=== PATIENT | male | born 1970 | race Caucasian/White ===

== ENCOUNTER → 2017-02-25 | Outpatient (CLI) | payer OTHER ==
--- NOTE | 2017-02-25 14:24 | MR ---
EXAMINATION TYPE: MR knee LT wo con DATE OF EXAM: 02/25/2017 COMPARISON: Prior left knee MRI 12/16/2013 HISTORY: Left knee pain TECHNIQUE: Multiplanar, multisequence imaging of the left knee is performed without IV contrast. FINDINGS: MEDIAL MENISCUS: There is a stable appearance. Some minimal increased signal present in the posterior horn of the medial meniscus does not extend to the articular surface. LATERAL MENISCUS: Anterior and posterior horns are intact without tear. CRUCIATE LIGAMENTS: There is some fluid signal coursing along the anterior cruciate ligament (inserti on similar to previous exam, findings may be due to degenerative signal, no samantha tear of the anterio r or posterior cruciate ligaments. COLLATERAL LIGAMENTS: Intact EXTENSOR MECHANISM: Visualized quadriceps and patellar tendons are intact. EFFUSION: Minimal joint fluid is present as on prior exam. POPLITEAL CYST: Small semimembranosus gastrocnemius cyst is again seen and is stable. Measures appro ximately 3.1 x 0.8 x 0.8 cm. TRICOMPARTMENT SPACES: Maintained CARTILAGE: Intact BONE MARROW SIGNAL: No focal abnormal marrow signal is appreciated. OTHER: There was a small area of fluid anterior to the inferior patella within the subcutaneous soft tissues noted on prior exam, signal characteristics have changed, this likely represents residuum fr om prior hematoma within the subcutaneous fat anterior to the inferior margin of the patella. Low sig nal is present on T1 and T2-weighted sequences, crescentic focus measures only approximately 2 cm in cephalocaudal dimension by approximately 3 mm in anterior to posterior dimension by approximately 2.4 cm in greatest transverse dimension. Correlate for any palpable abnormality. IMPRESSION: There is evidence of prior hematoma due to contusion on prior exam. No ligamentous disruption is evid ent. Additional findings above.
== END | disposition home or self-care (01) ==
LOC: RADMRIMAIN 09:13
PROVIDERS: ATTEND Orthopaedic Surgery
DX: M79.81 Nontraumatic hematoma of soft tissue (principal)

== ENCOUNTER → 2017-03-17 | Outpatient (CLI) | payer OTHER ==
--- NOTE | 2017-03-17 15:58 | US ---
"EXAMINATION TYPE: US carotid duplex BILAT DATE OF EXAM: 03/17/2017 COMPARISON: NONE CLINICAL HISTORY: I65.21 Carotid Stenosis, I47.1 Atrial Fibrillation. Right eye amaurosis fugax x 2; Hollenhorst Plaque right eye per patient; EXAM MEASUREMENTS: RIGHT: Peak Systolic Velocity (PSV) cm/sec ----- Right CCA: 65.2 ----- Right ICA: 371.0 bulb ----- Right ECA: 122.0 ICA/CCA ratio: 5.7 RIGHT: End Diastole cm/sec ----- Right CCA: 17.2 ----- Right ICA: 220.8 ----- Right ECA: 29.8 LEFT: Peak Systolic Velocity (PSV) cm/sec ----- Left CCA: 98.0 ----- Left ICA: 114.1 ----- Left ECA: 123.8 ICA/CCA ratio: 1.2 LEFT: End Diastole cm/sec ----- Left CCA: 43.0 ----- Left ICA: 49.5 ----- Left ECA: 13.6 VERTEBRALS (direction of flow): Right Vertebral: Antegrade Left Vertebral: Antegrade Rhythm: Normal STAT Read by radiologist was requested by US technologist. Referring clinician notified by telephone IMPRESSION: 1. Extensive plaque bilaterally findings suggestive of a severe greater than 70% stenosis involving t he proximal right ICA. A Red message has been communicated to Nico Estevez DO via the [email or web address] | Critical Result sys tem on 03/17/2017 3:54 PM, Message ID [id number]."
--- NOTE | 2017-03-18 10:11 | ECHOF ---
Referral Reason:I65.21 Carotid Stenosis, I47.1 Atrial Fibillation MEASUREMENTS -------- HEIGHT: 177.8 cm WEIGHT: 68.9 kg BP: RVIDd: 2.5 cm (< 3.3) IVSd: 0.9 cm (0.6 - 1.1) LVIDd: 4.1 cm (3.9 - 5.3) LVPWd: 1.1 cm (0.6 - 1.1) IVSs: 1.2 cm LVIDs: 2.9 cm LVPWs: 1.5 cm LAESV Index (A-L): 23.88 ml/m Ao Diam: 3.3 cm (2.0 - 3.7) AV Cusp: 1.7 cm (1.5 - 2.6) LA Diam: 2.8 cm (2.7 - 3.8) MV EXCURSION: 19.458 mm (> 18.000) MV EF SLOPE: 136 mm/s (70 - 150) EPSS: 0.8 cm MV E Angel: 0.87 m/s MV DecT: 201 ms MV A Angel: 0.86 m/s MV E/A Ratio: 1.01 RAP: 5.00 mmHg RVSP: 23.93 mmHg FINDINGS -------- Resting bradycardia (HR<60bpm). This was a technically good study. The left ventricular size is normal. Left ventricular wall thickness is normal. Overall left ventricular systolic function is normal with, an EF between 55 - 60 %. The right ventricle is normal in size and function. Normal LA size by volume 22+/-6 ml/m2. The right atrium is normal in size. Aortic valve is trileaflet and is mildly thickened. Trace amount of aortic regurgitation. There is no evidence of aortic stenosis. The mitral valve leaflets are mildly thickened. There is trace mitral regurgitation. Trace tricuspid regurgitation present. Right ventricular systolic pressure is normal at < 35 mmHg. There is no evidence of pulmonary hypertension. The pulmonic valve is normal. The aortic root size is normal. Normal inferior vena cava with normal inspiratory collapse consistent with estimated right atrial pressure of 5 mmHg. The pericardium is normal. There is no pericardial effusion. CONCLUSIONS -------- 1. Resting bradycardia (HR<60bpm). 2. Trace tricuspid regurgitation present. 3. Right ventricular systolic pressure is normal at < 35 mmHg. 4. There is no evidence of pulmonary hypertension. 5. The aortic root size is normal. 6. There is no pericardial effusion. 7. This was a technically good study. 8. The left ventricular size is normal. 9. Overall left ventricular systolic function is normal with, an EF between 55 - 60 %. 10. Normal LA size by volume 22+/-6 ml/m2. 11. Aortic valve is trileaflet and is mildly thickened. 12. Trace amount of aortic regurgitation. 13. The mitral valve leaflets are mildly thickened. 14. There is trace mitral regurgitation. ORTHOPEDIC DESIGNER: Michael Bean RDCS
== END | disposition home or self-care (01) ==
LOC: RADUSMAIN 15:05
PROVIDERS: ATTEND Ophthalmology
DX: I65.21 Occlusion and stenosis of right carotid artery (principal); I08.8 Other rheumatic multiple valve diseases; R00.1 Bradycardia, unspecified; I47.1 Supraventricular tachycardia
CPT/HCPCS: 93306; 93880

== ENCOUNTER → 2017-05-03 | Outpatient (CLI) | payer OTHER ==
[2017-05-03 11:44] LABS: Basophils % (A) 0 %; CH 30.5; CHCM 32.5; Eosinophils % (A) 0 %; HCT 47.9 % (39.0-53.0); HDW 2.41; HGB 15.5 gm/dL (13.0-17.5); Luc # (Auto) 0.06; Luc % (Auto) 1; Lymphocytes # (A) 1.6 k/uL (1.0-4.8); Lymphocytes % (A) 12 %; MCH 30.5 pg (25.0-35.0); MCHC 32.3 g/dL (31.0-37.0); MCV 94.3 fL (80.0-100.0); Mean Platelet Volume 6.9; Monocytes # (A) 0.5 k/uL (0-1.0); Monocytes % (A) 4 %; Neutrophils # (A) 10.7 k/uL (1.3-7.7); Neutrophils % (A) 83 %; RBC 5.08 m/uL (4.30-5.90); RDW 14.6 % (11.5-15.5); WBC 12.9 k/uL (3.8-10.6); WBC (Perox) 13.13
[2017-05-03 11:51] LABS: Appearance,Urine Clear (Clear); Bilirubin,Urine Negative (Negative); Glucose,Urine (UA) Negative (Negative); Ketones,Urine Negative (Negative); Leukocyte Esterase,Urine Negative (Negative); Mucus,Urine Rare /hpf; Nitrite,Urine Negative (Negative); Particle Count 1677; Protein,Urine Trace (Negative); RBC,Urine 6 /hpf (0-5); Specific Gravity,Urine 1.016 (1.001-1.035); UA Billing (MACRO vs. MICRO) MICRO
[2017-05-03 11:58] LABS: ALT 53 U/L (21-72); AST 24 U/L (17-59); Alkaline Phosphatase 98 U/L (38-126); Anion Gap 11 mmol/L; Blood Urea Nitrogen 11 mg/dL (9-20); Calcium 10.1 mg/dL (8.4-10.2); Carbon Dioxide 25 mmol/L (22-30); Chloride 103 mmol/L (98-107); Cholesterol 265 mg/dL (<200); Glucose 98 mg/dL (74-99); HDL Cholesterol 57 mg/dL (40-60); Non-African American GFR(MDRD) >60 (>60 ml/min/1.73 sqM); Sodium 139 mmol/L (137-145); Total Bilirubin 0.8 mg/dL (0.2-1.3); Total Protein 7.3 g/dL (6.3-8.2)
== END | disposition home or self-care (01) ==
LOC: LABWHC1 11:10
PROVIDERS: ATTEND Family Medicine
DX: Z00.00 Encounter for general adult medical examination without abnormal findings (principal)
CPT/HCPCS: 36415; 80053; 80061; 81001; 85025

== ENCOUNTER 2019-07-07 13:22 | Emergency (ER) | payer BC, OTHER ==
[2019-07-07 13:32] VITALS: TEMP 98.6
[2019-07-07] MEDS ORDERED: SODIUM CHLORIDE 0.9% 500 ML 500 ML IV STA (13:42)
[2019-07-07] MEDS ORDERED: predniSONE 20 MG TAB PO STA (13:45)
[2019-07-07] MEDS ORDERED: valACYclovir HCL 1,000 MG TABLET PO STA (13:45)
[2019-07-07 13:48] LABS: Glucose,Whole Blood 96 mg/dL (75-99)
--- NOTE | 2019-07-07 13:50 | ED ---
General Adult HPI - General Chief complaint: Neuro Symptoms/Deficit Stated complaint: left side facial numbness Time Seen by Provider: 07/07/19 13:33 Source: patient, RN notes reviewed, old records reviewed Mode of arrival: ambulatory Limitations: no limitations - History of Present Illness Initial comments: 48-year-old male presenting with left-sided facial droop. Patient's symptoms began as numbness at approximately midnight last night which is 13-1/2 hours prior to arrival. Patient states that progressively worsened and he has developed facial droop and difficulty closing his left eye. Denies any extremity symptoms. Denies headache. Denies visual changes. Denies chest pain or dyspnea. Denies abdominal pain nausea vomiting. Denies fever. No ear pain. Has previous history of hypertension, hypercholesterolemia. He is noncompliant with his medications. He has previous history of right carotid endarterectomy approximately 4 years ago. Current smoker. - Related Data Home Medications Medication Instructions Recorded Confirmed Rosuvastatin Calcium [Crestor] 20 mg PO HS 07/07/19 07/07/19 traMADol HCL [Ultram] 50 mg PO Q6HR PRN 07/07/19 07/07/19 Previous Rx's Medication Instructions Recorded Aspirin 325 mg PO DAILY #30 tab 07/07/19 Rosuvastatin [Crestor] 20 mg PO DAILY #30 tablet 07/07/19 predniSONE 50 mg PO DAILY #7 tab 07/07/19 valACYclovir HCL [Valtrex] 1,000 mg PO Q8HR #21 tab 07/07/19 Allergies Allergy/AdvReac Type Severity Reaction Status Date / Time No Known Allergies Allergy Verified 07/07/19 14:44 Review of Systems ROS Statement: Those systems with pertinent positive or pertinent negative responses have been documented in the HPI. ROS Other: All systems not noted in ROS Statement are negative. Past Medical History Past Medical History: GERD/Reflux, Hypertension Additional Past Medical History / Comment(s): hx hypertension-no rx currently, "Pancreas problem", diarrhea History of Any Multi-Drug Resistant Organisms: None Reported Past Surgical History: Appendectomy Past Anesthesia/Blood Transfusion Reactions: No Reported Reaction, Unable to Obtain Additional Past Anesthesia/Blood Transfusion Reaction / Comment(s): adopted-no family hx Past Psychological History: No Psychological Hx Reported Smoking Status: Current every day smoker Past Alcohol Use History: None Reported Past Drug Use History: Marijuana - Past Family History Father Family Medical History: Unable to Obtain General Exam Limitations: no limitations General appearance: alert, in no apparent distress Head exam: Present: atraumatic, normocephalic Eye exam: Present: normal appearance, PERRL ENT exam: Present: normal exam Neck exam: Present: normal inspection. Absent: tenderness, meningismus Respiratory exam: Present: normal lung sounds bilaterally. Absent: respiratory distress, wheezes Cardiovascular Exam: Present: regular rate, normal rhythm GI/Abdominal exam: Present: soft. Absent: distended, tenderness, guarding Extremities exam: Present: normal inspection, normal capillary refill. Absent: pedal edema, calf tenderness Back exam: Present: normal inspection Neurological exam: Present: alert, oriented X3, normal gait, motor sensory deficit (Left facial droop, left forehead weakness, difficulty closing the left eyelid.). Absent: CN II-XII intact Skin exam: Present: warm, dry, intact. Absent: cyanosis, diaphoretic Course Vital Signs 07/07/19 07/07/19 07/07/19 13:28 13:50 14:05 Temperature 98.6 F Pulse Rate 72 74 65 Respiratory 18 18 16 Rate Blood Pressure 166/99 155/110 145/97 O2 Sat by Pulse 98 100 99 Oximetry 07/07/19 07/07/19 07/07/19 14:06 14:24 15:25 Temperature Pulse Rate 71 67 68 Respiratory 18 16 18 Rate Blood Pressure 145/97 148/108 144/99 O2 Sat by Pulse 99 100 99 Oximetry 07/07/19 16:50 Temperature Pulse Rate 62 Respiratory 16 Rate Blood Pressure 133/92 O2 Sat by Pulse 98 Oximetry EKG Findings - EKG Comments: EKG Findings:: EKG: Normal sinus rhythm with short SC, rate of 66, SC interval 110, QRS duration 88, QTC 392, no ST segment elevation Medical Decision Making - Medical Decision Making 48-year-old male presenting with left-sided facial weakness. Patient has partial weakness of the left brow and left-sided facial droop with associated numbness. Stroke was activated given the patient's risk factors including tobacco use, hypertension, hypercholesterolemia, and previous right carotid endarterectomy. I discussed case with the stroke neurologist Dr. Delgado, who will review the CT and CT angiography. Not a TPA candidate, recommends aspirin and statin. CT is negative for intracranial hemorrhage or mass effect. CT angiography shows previous surgical intervention of the right carotid, otherwise unremarkable. Patient has a nonischemic normal sinus EKG. He has a normal CBC normal CMP, n egative troponin. He is given aspirin in the emergency department as well as Plavix. He is also given prednisone and Valtrex. My plan was to admit this patient for further stroke evaluation, MRI, echo, and neurology consultation. Patient declines. 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 I offered this patient wishes and discharge him, he is given referral to neurology. He's placed on aspirin, statin, as well as prednisone and Valtrex. - Lab Data Result diagrams: 07/07/19 13:50 07/07/19 13:50 Lab Results 07/07/19 07/07/19 07/07/19 Range/Units 13:47 13:50 13:50 WBC 8.0 (3.8-10.6) k/uL RBC 4.85 (4.30-5.90) m/uL Hgb 15.1 (13.0-17.5) gm/dL Hct 43.8 (39.0-53.0) % MCV 90.2 (80.0-100.0) fL MCH 31.1 (25.0-35.0) pg MCHC 34.5 (31.0-37.0) g/dL RDW 12.3 (11.5-15.5) % Plt Count 254 (150-450) k/uL Neutrophils % 49 % Lymphocytes % 39 % Monocytes % 5 % Eosinophils % 3 % Basophils % 1 % Neutrophils # 3.9 (1.3-7.7) k/uL Lymphocytes # 3.1 (1.0-4.8) k/uL Monocytes # 0.4 (0-1.0) k/uL Eosinophils # 0.3 (0-0.7) k/uL Basophils # 0.1 (0-0.2) k/uL PT (9.0-12.0) sec INR (<1.2) APTT (22.0-30.0) sec Sodium 138 (137-145) mmol/L Potassium 4.4 (3.5-5.1) mmol/L Chloride 105 (98-107) mmol/L Carbon Dioxide 25 (22-30) mmol/L Anion Gap 8 mmol/L BUN 7 L (9-20) mg/dL Creatinine 0.78 (0.66-1.25) mg/dL Est GFR (CKD-EPI)AfAm >90 (>60 ml/min/1.73 sqM) Est GFR (CKD-EPI)NonAf >90 (>60 ml/min/1.73 sqM) Glucose 93 (74-99) mg/dL POC Glucose (mg/dL) 96 (75-99) mg/dL POC Glu Sonar Technician ID Calcium 9.5 (8.4-10.2) mg/dL Total Bilirubin 0.6 (0.2-1.3) mg/dL AST 24 (17-59) U/L ALT 17 (4-49) U/L Alkaline Phosphatase 91 (38-126) U/L Troponin I (0.000-0.034) ng/mL Total Protein 7.5 (6.3-8.2) g/dL Albumin 4.3 (3.5-5.0) g/dL 07/07/19 07/07/19 Range/Units 13:50 13:50 WBC (3.8-10.6) k/uL RBC (4.30-5.90) m/uL Hgb (13.0-17.5) gm/dL Hct (39.0-53.0) % MCV (80.0-100.0) fL MCH (25.0-35.0) pg MCHC (31.0-37.0) g/dL RDW (11.5-15.5) % Plt Count (150-450) k/uL Neutrophils % % Lymphocytes % % Monocytes % % Eosinophils % % Basophils % % Neutrophils # (1.3-7.7) k/uL Lymphocytes # (1.0-4.8) k/uL Monocytes # (0-1.0) k/uL Eosinophils # (0-0.7) k/uL Basophils # (0-0.2) k/uL PT 10.2 (9.0-12.0) sec INR 1.0 (<1.2) APTT 26.2 (22.0-30.0) sec Sodium (137-145) mmol/L Potassium (3.5-5.1) mmol/L Chloride (98-107) mmol/L Carbon Dioxide (22-30) mmol/L Anion Gap mmol/L BUN (9-20) mg/dL Creatinine (0.66-1.25) mg/dL Est GFR (CKD-EPI)AfAm (>60 ml/min/1.73 sqM) Est GFR (CKD-EPI)NonAf (>60 ml/min/1.73 sqM) Glucose (74-99) mg/dL POC Glucose (mg/dL) (75-99) mg/dL POC Glu Sonar Technician ID Calcium (8.4-10.2) mg/dL Total Bilirubin (0.2-1.3) mg/dL AST (17-59) U/L ALT (4-49) U/L Alkaline Phosphatase (38-126) U/L Troponin I <0.012 (0.000-0.034) ng/mL Total Protein (6.3-8.2) g/dL Albumin (3.5-5.0) g/dL Critical Care Time Critical Care Time: Yes Total Critical Care Time: 35 Disposition Clinical Impression: Cerebrovascular accident (CVA), Campbell's palsy Disposition: HOME SELF-CARE Condition: Fair Instructions (If sedation given, give patient instructions): Campbell Palsy (ED), I schemic Stroke (DC) Prescriptions: Aspirin 325 mg PO DAILY #30 tab Rosuvastatin [Crestor] 20 mg PO DAILY #30 tablet predniSONE 50 mg PO DAILY #7 tab valACYclovir HCL [Valtrex] 1,000 mg PO Q8HR #21 tab Is patient prescribed a controlled substance at d/c from ED?: No Referrals: Benjy Owen MD [Primary Care Provider] - 1-2 days Eduard Alvarado MD [STAFF PHYSICIAN] - 1-2 days Time of Disposition: 16:42
--- NOTE | 2019-07-07 14:07 | CT ---
EXAMINATION TYPE: CT brain wo con DATE OF EXAM: 07/07/2019 COMPARISON: CT brain February 15, 2013 HISTORY: Left sided facial droop CT DLP: 1087.8 mGycm. Automated Exposure Control for Dose Reduction was Utilized. TECHNIQUE: CT scan of the head is performed without contrast. FINDINGS: There is no acute intracranial hemorrhage, mass effect, or midline shift identified. The ventricles and sulci are within normal limits in size. Sheehan-white matter differentiation fairly well -maintained. There is hypoplastic or non-formed right frontal sinus redemonstrated. The globes are in tact and the visualized sinuses are clear. Patchy soft tissue density left external auditory canal th ought to reflect, slightly more prominent from prior. IMPRESSION: No acute intracranial hemorrhage or midline shift is seen. No significant change from pr ior.
[2019-07-07 14:22] LABS: ALT 17 U/L (4-49); AST 24 U/L (17-59); African American GFR (CKD) >90 (>60 ml/min/1.73 sqM); Albumin 4.3 g/dL (3.5-5.0); Alkaline Phosphatase 91 U/L (38-126); Anion Gap 8 mmol/L; Blood Urea Nitrogen 7 mg/dL (9-20); Calcium 9.5 mg/dL (8.4-10.2); Carbon Dioxide 25 mmol/L (22-30); Chloride 105 mmol/L (98-107); Glucose 93 mg/dL (74-99); Non-African American GFR(CKD) >90 (>60 ml/min/1.73 sqM); Partial Thromboplastin Time 26.2 sec (22.0-30.0); Potassium 4.4 mmol/L (3.5-5.1); Prothrombin Time 10.2 sec (9.0-12.0); Sodium 138 mmol/L (137-145); Total Bilirubin 0.6 mg/dL (0.2-1.3); Total Protein 7.5 g/dL (6.3-8.2)
[2019-07-07 14:30] LABS: Basophils # (A) 0.1 k/uL (0-0.2); Basophils % (A) 1 %; Eosinophils # (A) 0.3 k/uL (0-0.7); Eosinophils % (A) 3 %; HCT 43.8 % (39.0-53.0); HGB 15.1 gm/dL (13.0-17.5); Lymphocytes # (A) 3.1 k/uL (1.0-4.8); Lymphocytes % (A) 39 %; MCH 31.1 pg (25.0-35.0); MCHC 34.5 g/dL (31.0-37.0); MCV 90.2 fL (80.0-100.0); Mean Platelet Volume 7.6; Monocytes # (A) 0.4 k/uL (0-1.0); Monocytes % (A) 5 %; Neutrophils # (A) 3.9 k/uL (1.3-7.7); Neutrophils % (A) 49 %; Platelet Count 254 k/uL (150-450); RBC 4.85 m/uL (4.30-5.90); RDW 12.3 % (11.5-15.5)
[2019-07-07] MEDS ORDERED: CLOPIDOGREL 75 MG TAB PO STA (14:45)
[2019-07-07] MEDS ORDERED: ASPIRIN 325 MG TAB PO STA (14:45)
--- NOTE | 2019-07-07 15:07 | CT ---
EXAMINATION TYPE: CODE STROKE: CTA head neck DATE OF EXAM: 07/07/2019 HISTORY: Left sided facial droop COMPARISON: Carotid ultrasound March 17, 2017 CT DLP: 439.1 mGycm. Automated Exposure Control for Dose Reduction was Utilized. TECHNIQUE: CTA scan of the head and neck are performed with IV Contrast, patient injected with 65 mL of Isovue 370, axial images are obtained, coronal and sagittal reformatted images are reviewed. Thre e-D reconstructed images are created on an independent workstation and reviewed. FINDINGS: Carotid/Vascular Structures: Normal 3 vessel origins from aortic arch. Right common carotid artery sh ows normal origin from right brachiocephalic artery. No significant plaque or stenosis in right commo n or internal carotid artery. There is focal dilatation or aneurysm of the right internal carotid art lai shortly after its origin up to 1.2 cm axial image 60. There is mild mixed plaque left carotid bul b extending into proximal internal carotid artery without significant stenosis. For comparison left p roximal internal carotid artery measures 5 to 6 mm in diameter near axial image 58. There are patent external carotid arteries bilaterally without significant plaque or stenosis. There is also slight di latation or prominence of the distal right common carotid artery before bifurcation up to 8 mm axial image 55. There is a codominant vertebrobasilar system. Vertebral arteries are patent to the basilar junction. There is no significant focal stenosis or aneurysmal change. Patent bilateral posterior communicating arteries are seen. There is hypoplastic or poor visualization of anterior communicating artery. There is no significant focal stenosis or aneurysmal change seen. Other: Slight scoliotic curvature present centered upper thoracic spine on coronal images. Mild to moderate emphysematous change with scattered blebs throughout the lung apices and upper lungs and mild scattered pulmonary fibrotic changes. IMPRESSION: 1. No significant stenosis in common or internal carotid arteries bilaterally. 2. No significant focal stenosis or aneurysmal change at the level of the [place]. Prominence of the distal right common carotid artery and proximal right internal carotid artery is no michelle. Review of patient's record shows history of prior carotid surgical repair this is presumed likel y posttreatment change without significant recurrent plaque or stenosis.
--- NOTE | 2019-07-07 15:18 | XR ---
EXAMINATION TYPE: XR chest 1V portable DATE OF EXAM: 07/07/2019 COMPARISON: 01/26/2015 HISTORY: Slurred speech TECHNIQUE: Single frontal view of the chest is obtained. FINDINGS: There is no focal air space opacity, pleural effusion, or pneumothorax seen. The cardiac silhouette size is within normal limits. The osseous structures are intact. Coarsened interstitium. IMPRESSION: Coarsened interstitium could be seen with bronchitis or chronic interstitial lung diseas e. Correlate clinically..
[2019-07-07 16:55] VITALS: BP 133/92; PULSE 62; RESP 16
== END 2019-07-07 16:55 | disposition home or self-care (01) ==
LOC: EC 13:22
DX: I63.9 Cerebral infarction, unspecified (principal); G51.0 Bell's palsy; I10 Essential (primary) hypertension; F17.200 Nicotine dependence, unspecified, uncomplicated; Z79.899 Other long term (current) drug therapy; Z91.14 Patient's other noncompliance with medication regimen
CPT/HCPCS: 36415; 93005; 80053; 84484; 85025; 85610; 85730; 71045; 70496; 70450; 70498; 99291; 96360; J7512; Q9967

== ENCOUNTER 2020-02-28 11:48 | Inpatient (IN) | payer BC ==
[2020-02-28] MEDS ORDERED: ASPIRIN 81 MG PO STA (12:08)
[2020-02-28] MEDS ORDERED: NITROGLYCERIN SL TABS 0.4 MG TAB SUBLINGUAL STA (12:08)
[2020-02-28] MEDS ORDERED: HEPARIN SODIUM,PORCINE 5,000 UNIT/ML 1 ML VIAL IV STA (12:08)
[2020-02-28] MEDS ORDERED: AMIODARONE 360 MG in DEXTROSE 5% IN WATER 200 ML IV ONE ×2 (12:15)
[2020-02-28] MEDS ORDERED: HEPARIN SOD,PORK IN 0.45% NACL 25,000 UNIT in 0.45% NACL 1 250ML.BAG IV SCH (12:15)
--- NOTE | 2020-02-28 12:19 | ED ---
General Adult HPI - General Chief complaint: Chest Pain Stated complaint: chest pain Time Seen by Provider: 02/28/20 12:00 Source: patient Mode of arrival: wheelchair Limitations: no limitations - History of Present Illness Initial comments: Dictation was produced using [employer] dictation software. please excuse any grammatical, word or spelling errors. This patient was cared for during a federal and state declared state of emergency secondary to Covid 19 Chief Complaint: 49-year-old male with past medical history of peripheral vascu lar disease, hypertension, GERD presents today with chest pain. History of Present Illness: Patient is a 49-year-old male presents today with chest pain. Patient has had 3 episodes in the last 24 hours. He had one episode yesterday that lasted for several minutes, resolved on its own. Today he had 2 episodes. Approximately 1-2 hours prior to arrival had one episode last several minutes. Those symptoms resolved. Patient then had recurrent symptoms several minutes later. He states the pain is substernal. It does feel like pressure that radiates to the jaw and left shoulder. Patient has any history of coronary artery disease. Does not have a history of any sort of cardiac disease processes. He also reports diaphoresis The ROS documented in this emergency department record has been reviewed and confirmed by me. Those systems with pertinent positive or negative responses have been documented in the HPI. All other systems are other negative and/or noncontributory. PHYSICAL EXAM: General Impression: Alert and oriented x3, acute distress secondary to pain HEENT: Normocephalic atraumatic, extra-ocular movements intact, pupils equal and reactive to light bilaterally, mucous membranes moist. Cardiovascular: Heart regular rate and rhythm, no murmurs Chest: Able to complete full sentences, no retractions, no tachypnea, lungs clear to auscultation bilaterally Abdomen: abdomen soft, non-tender, non-distended, no organomegaly Musculoskeletal: Pulses present and equal in all extremities, no peripheral edema Motor: no focal deficits noted Neurological: CN II-XII grossly intact, no focal motor or sensory deficits noted Skin: Intact with no visualized rashes Psych: Anxious ED course: 49-year-old male past medical history of peripheral vascular disease, carotid endarterectomy presents with acute coronary syndrome all signs upon arrival are within acceptable limits. Initial EKG showed relatively comparable EKG from June of this year. However patient did appear ill. We did repeat EKG posteriorly with findings concerning for acute ST segment elevation DE. Code STEMI was paged. Patient was given aspirin, nitroglycerin started on heparin. Case was discussed with Dr. Stokes will be taking over patient's care in the catheterization lab. This practitioner's from cardiology service are at bedside. Pending discussion with the al for hospital admission. - Related Data Home Medications Medication Instructions Recorded Confirmed traMADol HCL [Ultram] 50 mg PO Q6HR PRN 07/07/19 02/28/20 Evolocumab [Repatha Sureclick] 140 mg SQ Q14D 02/28/20 02/28/20 Losartan/Hydrochlorothiazide 0.5 tab PO DAILY 02/28/20 02/28/20 [Losartan-Hctz 100-25 mg Tab] Previous Rx's Medication Instructions Recorded Aspirin 325 mg PO DAILY #30 tab 07/07/19 Rosuvastatin [Crestor] 20 mg PO DAILY #30 tablet 07/07/19 Allergies Allergy/AdvReac Type Severity Reaction Status Date / Time No Known Allergies Allergy Verified 02/28/20 12:50 Review of Systems ROS Statement: Those systems with pertinent positive or pertinent negative responses have been documented in the HPI. ROS Other: All systems not noted in ROS Statement are negative. Past Medical History Past Medical History: GERD/Reflux, Hypertension Additional Past Medical History / Comment(s): hx hypertension-no rx currently, "Pancreas problem", diarrhea History of Any Multi-Drug Resistant Organisms: None Reported Past Surgical History: Appendectomy Additional Past Surgical History / Comment(s): carotid endart. Past Anesthesia/Blood Transfusion Reactions: No Reported Reaction, Unable to Obtain Additional Past Anesthesia/Blood Transfusion Reaction / Comment(s): adopted-no family hx Past Psychological History: No Psychological Hx Reported Smoking Status: Current some day smoker Past Alcohol Use History: None Reported Past Drug Use History: Marijuana - Past Family History Father Family Medical History: Unable to Obtain General Exam Limitations: no limitations Course Vital Signs 02/28/20 11:51 Temperature 98.2 F Pulse Rate 70 Respiratory 18 Rate Blood Pressure 132/83 O2 Sat by Pulse 99 Oximetry Medical Decision Making - Lab Data Result diagrams: 02/28/20 12:13 02/28/20 12:13 Lab Results 02/28/20 02/28/20 02/28/20 Range/Units 12:13 12:13 12:13 WBC 11.1 H (3.8-10.6) k/uL RBC 5.18 (4.30-5.90) m/uL Hgb 15.9 (13.0-17.5) gm/dL Hct 47.8 (39.0-53.0) % MCV 92.4 (80.0-100.0) fL MCH 30.7 (25.0-35.0) pg MCHC 33.3 (31.0-37.0) g/dL RDW 12.7 (11.5-15.5) % Plt Count 308 (150-450) k/uL Neutrophils % 52 % Lymphocytes % 35 % Monocytes % 7 % Eosinophils % 3 % Basophils % 1 % Neutrophils # 5.7 (1.3-7.7) k/uL Lymphocytes # 3.9 (1.0-4.8) k/uL Monocytes # 0.7 (0-1.0) k/uL Eosinophils # 0.3 (0-0.7) k/uL Basophils # 0.1 (0-0.2) k/uL PT 10.3 (9.0-12.0) sec INR 1.0 (<1.2) APTT 25.8 (22.0-30.0) sec Sodium 139 (137-145) mmol/L Potassium 4.7 (3.5-5.1) mmol/L Chloride 101 (98-107) mmol/L Carbon Dioxide 27 (22-30) mmol/L Anion Gap 11 mmol/L BUN 13 (9-20) mg/dL Creatinine 0.91 (0.66-1.25) mg/dL Est GFR (CKD-EPI)AfAm >90 (>60 ml/min/1.73 sqM) Est GFR (CKD-EPI)NonAf >90 (>60 ml/min/1.73 sqM) Glucose 149 H (74-99) mg/dL Calcium 10.3 H (8.4-10.2) mg/dL Magnesium 2.0 (1.6-2.3) mg/dL Total Bilirubin 0.5 (0.2-1.3) mg/dL AST 23 (17-59) U/L ALT 16 (4-49) U/L Alkaline Phosphatase 100 (38-126) U/L Total Protein 7.8 (6.3-8.2) g/dL Albumin 4.6 (3.5-5.0) g/dL Disposition Clinical Impression: STEMI (ST elevation myocardial infarction) Disposition: ADMITTED IP TO THIS HOSP Condition: Critical Decision Time: 12:55
[2020-02-28] MEDS ORDERED: ATORVASTATIN 80 MG TAB PO STA (12:20)
[2020-02-28] MEDS ORDERED: EPINEPHrine 1 MG/ML 1 ML AMP IV ONE (12:31)
[2020-02-28 12:35] LABS: Basophils # (A) 0.1 k/uL (0-0.2); Basophils % (A) 1 %; Eosinophils # (A) 0.3 k/uL (0-0.7); Eosinophils % (A) 3 %; HCT 47.8 % (39.0-53.0); HGB 15.9 gm/dL (13.0-17.5); Lymphocytes # (A) 3.9 k/uL (1.0-4.8); Lymphocytes % (A) 35 %; MCH 30.7 pg (25.0-35.0); MCHC 33.3 g/dL (31.0-37.0); MCV 92.4 fL (80.0-100.0); Mean Platelet Volume 7.8; Monocytes # (A) 0.7 k/uL (0-1.0); Monocytes % (A) 7 %; Neutrophils # (A) 5.7 k/uL (1.3-7.7); Neutrophils % (A) 52 %; Platelet Count 308 k/uL (150-450); RBC 5.18 m/uL (4.30-5.90); RDW 12.7 % (11.5-15.5); WBC 11.1 k/uL (3.8-10.6)
[2020-02-28] MEDS ORDERED: AMIODARONE 50 MG/ML 3 ML VIAL IV ONE (12:37)
[2020-02-28] MEDS ORDERED: IV FLUID CONTINUATION 1,000 ML IV ONE (12:40)
[2020-02-28] MEDS ORDERED: LIDOCAINE 1% INJ 10MG/ML (20 ML MDV) SQ ONE (12:40)
--- NOTE | 2020-02-28 12:41 | XR ---
EXAMINATION TYPE: XR chest 1V portable DATE OF EXAM: 02/28/2020 COMPARISON: Chest x-ray July 07, 2019. HISTORY: STEMI. Chest pain. TECHNIQUE: Single AP portable frontal upright view of the chest is obtained. FINDINGS: There is chronic parenchymal changes bilaterally without suspicious new focal air space op acity, pleural effusion, or pneumothorax seen. The cardiac silhouette size remains within normal black its. The osseous structures remain intact. IMPRESSION: Chronic changes without new suspicious acute pulmonary process.
[2020-02-28] MEDS ORDERED: HEPARIN SODIUM 1,000 UN/ML (10ML VL) ONE (12:42)
[2020-02-28] MEDS ORDERED: fentaNYL (PF) 50 MCG/ML 2 ML AMP ONE (12:42)
[2020-02-28] MEDS ORDERED: fentaNYL (PF) 50 MCG/ML 2 ML AMP IVP ONE (12:44)
[2020-02-28] MEDS ORDERED: MIDAZOLAM 2 MG/2 ML VIAL IVP ONE (12:44)
[2020-02-28 12:45] LABS: Partial Thromboplastin Time 25.8 sec (22.0-30.0); Prothrombin Time 10.3 sec (9.0-12.0)
[2020-02-28 12:50] LABS: ALT 16 U/L (4-49); AST 23 U/L (17-59); African American GFR (CKD) >90 (>60 ml/min/1.73 sqM); Albumin 4.6 g/dL (3.5-5.0); Alkaline Phosphatase 100 U/L (38-126); Anion Gap 11 mmol/L; Blood Urea Nitrogen 13 mg/dL (9-20); Calcium 10.3 mg/dL (8.4-10.2); Carbon Dioxide 27 mmol/L (22-30); Chloride 101 mmol/L (98-107); Glucose 149 mg/dL (74-99); Non-African American GFR(CKD) >90 (>60 ml/min/1.73 sqM); Potassium 4.7 mmol/L (3.5-5.1); Sodium 139 mmol/L (137-145); Total Bilirubin 0.5 mg/dL (0.2-1.3); Total Protein 7.8 g/dL (6.3-8.2)
[2020-02-28] MEDS ORDERED: NALOXONE 0.4 MG/ML 1 ML VIAL IV PRN (12:55)
[2020-02-28] MEDS ORDERED: HEPARIN SODIUM 1,000 UN/ML (10ML VL) IV ONE (12:56)
[2020-02-28] MEDS ORDERED: TICAGRELOR 90 MG TAB ONE (13:03)
[2020-02-28] MEDS ORDERED: TICAGRELOR 90 MG TAB PO ONE (13:06)
[2020-02-28] MEDS ORDERED: NITROGLYCERIN 1000MCG/10ML SYRINGE INTRACORON ONE (13:06)
[2020-02-28] MEDS ORDERED: IOPAMIDOL-370 125ML BTL INJ ONE (13:08)
--- NOTE | 2020-02-28 13:11 | P.CARDCATH ---
Date of Procedure: 02/28/20 Preoperative Diagnosis: Anterior wall CA Postoperative Diagnosis: Total occlusion of the LAD Procedure(s) Performed: Left heart catheterization without left ventriculography Description of Procedure: HISTORY: This is a 49-year-old gentleman with history of hypercholesterolemia, hypertension, carotid disease who started having chest pains off-and-on for the last 24 hours or so. He came with prolonged chest pain to the ER. The initial EKG showed we will J-point elevation in anterior leads which was not diagnostic. However second EKG done about 10-[address] elevation in anterior leads consistent with acute anterior wall myocardial infarction. Patient was advised to have a cardiac cath with intention of primary intervention. By the time patient came to the Lab. He developed ventricular fibrillation requiring brief CPR and also shocks 3. After that patient was alert and oriented and clinically stable CONSENT:I have discussed the risks, benefits and alternative therapies for the above-mentioned procedure and for both sedation/analgesia as well as necessary blood product administration, if indicated, as they pertain to this patient. The patient has indicated understanding and acceptance of the risks and procedures discussed. PROCEDURE: Patient was brought to the lab . Patient was given some IV sedation. The right groin is infiltrated with lidocaine and right femoral artery was ente red using Seldinger technique. A 6-Upper Sorbian catheter was left in place and selective coronary arteriography was performed. Patient tolerated the procedure well. No immediate complications were noted and patient went on to have stent placement of the LAD by Dr. Terry Conscious Sedation: Versed 1mg Fentanyl 25 g Duration 13minutes HEMODYNAMICS: The aortic pressure is about 80 systolic. The left ventricle end- diastolic pressure was not measured SELECTIVE CORONARY ARTERIOGRAPHY: LEFT MAIN: Long and free of occlusive disease THE LEFT ANTERIOR DESCENDING CORONARY ARTERY:. This is a moderate caliber vessel with a critical lesion in the ostium, followed by total occlusion of the small diagonal branch THE LEFT CIRCUMFLEX AND IS CORONARY ARTERY:. This is a moderate caliber vessel and free of any significant occlusive disease. Mild diffuse plaque THE RIGHT CORONARY ARTERY: This is a good caliber vessel with about 60% stenosis involving the proximal portion. Mildly calcified and with a diffuse plaque LEFT VENTRICULOGRAPHY: Not performed FINAL IMPRESSION:. Total occlusion of the LAD with moderate to severe disease involving the RCA PLAN: Stent placement the lady being done by Dr. Terry PROGNOSIS: Guarded
--- NOTE | 2020-02-28 13:14 | P.CRDCN ---
History of Present Illness Consult date: 02/28/20 History of present illness: This is a 49-year-old male with history of hypertension and hypercholesteremia, and also smoking with known carotid disease who has been having chest pains for about 24 hours intermittently. Finally patient came to the emergency room with prolonged chest tightness. He initially EKGs are nondiagnostic but repeat EKG after [address] elevation in anterior leads. Patient is advised to have a cardiac catheterization with intention of primary intervention. While patient was in the Lab. He had an episode of ventricular fibrillation requiring CPR and shock 3 3. Subsequently patient remained in sinus rhythm and seemed to be alert and oriented. Review of Systems Not obtained Past Medical History Past Medical History: GERD/Reflux, Hypertension Additional Past Medical History / Comment(s): hx hypertension-no rx currently, "Pancreas problem", diarrhea, hypercholesterolemia History of Any Multi-Drug Resistant Organisms: None Reported Past Surgical History: Appendectomy Additional Past Surgical History / Comment(s): carotid endart. Past Anesthesia/Blood Transfusion Reactions: No Reported Reaction, Unable to Obtain Additional Past Anesthesia/Blood Transfusion Reaction / Comment(s): adopted-no family hx Past Psychological History: No Psychological Hx Reported Smoking Status: Current some day smoker Past Alcohol Use History: None Reported Past Drug Use History: Marijuana - Past Family History Father Family Medical History: Unable to Obtain Medications and Allergies Home Medications Medication Instructions Recorded Confirmed Type Aspirin 325 mg PO DAILY #30 tab 07/07/19 02/28/20 Rx Rosuvastatin [Crestor] 20 mg PO DAILY #30 tablet 07/07/19 02/28/20 Rx traMADol HCL [Ultram] 50 mg PO Q6HR PRN 07/07/19 02/28/20 History Losartan/Hydrochlorothiazide 0.5 tab PO DAILY 02/28/20 02/28/20 History [Losartan-Hctz 100-25 mg Tab] Allergies Allergy/AdvReac Type Severity Reaction Status Date / Time No Known Allergies Allergy Verified 02/28/20 12:50 Physical Exam Vitals: Vital Signs Temp Pulse Resp BP Pulse Ox 02/28/20 11:51 98.2 F 70 18 132/83 99 Intake and Output 02/27/20 02/28/20 02/28/20 22:59 06:59 14:59 Other: Weight 72.575 kg GENERAL EXAM: Patient is alert and oriented and doesn't appear to be in any acute distress HEENT: Normocephalic. Normal reaction of pupils, equal size, normal range of extraocular motion. No erythema or exudates in the throat. NECK: No masses, no nuchal rigidity. CHEST: No chest wall deformity. LUNGS: Equal air entry with no crackles or wheeze. HEART: S1 and S2 normal with no audible mumurs or gallops. Regular rhythm, femorals equal on both sides.. ABDOMEN: No hepatosplenomegaly, normal bowel sounds, no guarding or rigidity. SKIN: No rashes CENTRAL NERVOUS SYSTEM: No focal deficits. EXTREMITIES: No cyanosis, clubbing or edema. Results 02/28/20 12:13 02/28/20 12:13 Cardiac Enzymes 02/28/20 02/28/20 Range/Units 12:13 12:13 AST 23 (17-59) U/L Troponin I 0.013 (0.000-0.034) ng/mL Coagulation 02/28/20 Range/Units 12:13 PT 10.3 (9.0-12.0) sec APTT 25.8 (22.0-30.0) sec CBC 02/28/20 Range/Units 12:13 WBC 11.1 H (3.8-10.6) k/uL RBC 5.18 (4.30-5.90) m/uL Hgb 15.9 (13.0-17.5) gm/dL Hct 47.8 (39.0-53.0) % Plt Count 308 (150-450) k/uL Comprehensive Metabolic Panel 02/28/20 Range/Units 12:13 Sodium 139 (137-145) mmol/L Potassium 4.7 (3.5-5.1) mmol/L Chloride 101 (98-107) mmol/L Carbon Dioxide 27 (22-30) mmol/L BUN 13 (9-20) mg/dL Creatinine 0.91 (0.66-1.25) mg/dL Glucose 149 H (74-99) mg/dL Calcium 10.3 H (8.4-10.2) mg/dL AST 23 (17-59) U/L ALT 16 (4-49) U/L Alkaline Phosphatase 100 (38-126) U/L Total Protein 7.8 (6.3-8.2) g/dL Albumin 4.6 (3.5-5.0) g/dL Current Medications Generic Name Dose Route Start Last Admin Trade Name Freq PRN Reason Stop Dose Admin Heparin Sodium/Sodium Chloride 250 mls @ 8.709 mls/hr 02/28/20 12:15 25,000 unit/ Sodium Chloride IV .Q24H JESSICA Protocol 12 UNITS/KG/HR Sodium Chloride 1,000 mls @ 20 mls/hr 02/28/20 13:00 Saline 0.9% IV .Q24H JESSICA Amiodarone HCl 360 mg/ 200 mls @ 33.333 mls/hr 02/28/20 12:15 Dextrose/Water IV 02/28/20 18:14 .Q6H ONE Protocol 1 MG/MIN Naloxone HCl 0.2 mg 02/28/20 12:55 Naloxone 0.4 Mg/Ml 1 Ml Vial IV Q2M PRN Opioid Reversal Intake and Output 02/27/20 02/28/20 02/28/20 22:59 06:59 14:59 Other: Weight 72.575 kg Patient Weight 02/29/20 06:59 Weight 72.575 kg 02/28/20 12:13 02/28/20 12:13 EKG Interpretations (text) Sinus rhythm with acute anterior wall AR Assessment and Plan (1) Essential hypertension Current Visit: Yes Status: Acute Code(s): I10 - ESSENTIAL (PRIMARY) HYPERTENSION SNOMED Code(s): 98486341 (2) STEMI (ST elevation myocardial infarction) Current Visit: Yes Status: Acute Code(s): I21.3 - ST ELEVATION (STEMI) MYOCARDIAL INFARCTION OF [facility] SITE SNOMED Code(s): 99679381 (3) Hypercholesterolemia Current Visit: Yes Status: Acute Code(s): E78.00 - PURE HYPERCHOLESTEROLEMIA, UNSPECIFIED SNOMED Code(s): 73931585 (4) Carotid arterial disease Current Visit: Yes Status: Acute Code(s): I77.9 - DISORDER OF ARTERIES AND ARTERIOLES, UNSPECIFIED SNOMED Code(s): 095837441 Plan: Proceed with cardiac catheterization with the intention of primary intervention
[2020-02-28] MEDS ORDERED: IOPAMIDOL-370 100ML BTL INJ ONE (13:28)
[2020-02-28] MEDS ORDERED: ATROPINE SULFATE 0.1 MG/ML 10ML SYRINGE IV PRN (13:33)
[2020-02-28] MEDS ORDERED: NITROGLYCERIN SL TABS 0.4 MG TAB SUBLINGUAL PRN (13:33)
[2020-02-28] MEDS ORDERED: RX INFO: IV CONTRAST WAS GIVEN 1 EACH MISC MISCELLANE PRN (13:33)
[2020-02-28] MEDS ORDERED: MAG HYDROX/AL HYDROX/SIMETH 30 ML CUP PO PRN (13:33)
[2020-02-28 13:48] LABS: Glucose,Whole Blood 195 mg/dL (75-99)
--- NOTE | 2020-02-28 13:50 | P.PRCINT ---
Percutaneous Coronary Int. - Percutaneous Coronary Intervention Percutaneous Coronary Intervention: PROCEDURES PERFORMED: Selective left coronary angiography, successful PCI of proximal LAD with a 2.75 x 15 mm Xience EMMETT, postdilated with a 3.5 noncompliant balloon, Angio-Seal closure. INDICATION: Anterior STEMI HISTORY: Patient is a 49-year-old male with history of tobacco abuse, hypertension who presented with stuttering chest pain over the last 3 days which culminated and persistent chest pain starting at around 10 AM. He was brought to the emergency department and found to have an anterior STEMI. Patient had a diagnostic catheterization performed by my partner and I was asked to evaluate for possible PCI. PROCEDURE: After the risks, benefits and alternatives of the above mentioned procedure explained in detail with the patient, informed consent was obtained. The decision was made to intervene on the LAD. Heparin was given for an ACT over 250. A 6Fr sheath had been placed in the right femoral artery using modified Seldinger technique. A 6Fr CLS 3.5 guide catheter was used to engage t he left main. A 0.014 BMW wire was advanced into the distal vessel without difficulty. The lesion was predilated with a 2.5 x 12 mm balloon. Next, a 2.75 x 15 mm Xience EMMETT was deployed. The stent was then post dilated with a 3.5 x 8 mm NC balloon. Preintervention there was a 100 % stenosis and JENNIFER 0 flow and post intervention there was 0 % residual stenosis and JENNIFER 3 flow without evidence of dissection. The wire was removed and final angiograms were taken. There was a small caliber diagonal 1 vessel which appeared approximately 1.75 mm in diameter with a proximal 90% stenosis. He was not having any chest pain at the time and this was felt best treated medically. Additionally there was distal LAD spasm and thrombus which was also felt best treated medically. A 6-Italian pigtail catheter was advanced in the left ventricle and pressure measurements were obtained. The pigtail was then pulled across the aortic valve. A right femoral angiogram showed anatomy adequate for closure device. A 6-Italian Angio-Seal was placed. The patient tolerated the procedure well. Patient was transported back to the post catheterization holding area in stable condition. Conscious Sedation: Patient was monitored under the direct supervision of vision of myself for conscious sedation using Versed and fentanyl for a total duration of 33 minutes HEMODYNAMICS: Aorta: 98/55, heart rate 95 LV: 100/5, LVEDP 15, no gradient with pullback across the aortic valve FINAL IMPRESSION: 1. Anterior STEMI 2. Successful PCI of proximal LAD with a 2.75 x 15 mm Xience EMMETT, postdilated with a 3.5 noncompliant balloon PLAN: 1. Aggressive risk factor modification per most recent ACC/AHA guidelines. 2. Continue dual antiplatelets for 12 months. 3. Advised tobacco cessation.
[2020-02-28] MEDS: SODIUM CHLORIDE 0.9% 1,000 ML IV SCH (15:07)
[2020-02-28] MEDS: TICAGRELOR 90 MG TAB PO SCH (20:51)
[2020-02-28] MEDS: ZOLPIDEM 5 MG TAB PO PRN (20:51)
[2020-02-28] MEDS: HEPARIN SODIUM,PORCINE 5,000 UNIT/ML 1 ML VIAL IV PRN ×2 (20:51→20:54)
[2020-02-28 21:01] LABS: Glucose,Whole Blood 98 mg/dL (75-99)
--- NOTE | 2020-02-28 22:22 | P.HPIM ---
History of Present Illness H&P Date: 02/28/20 Chief Complaint: Chest pain History of presenting complaint: This is a 49-year-old patient, follows with Dr. Owen. Chronic stable medical conditions include hypertension, hyperlipidemia, or strength right is. For last 5 days patient been having chest pain on and off. Progressively getting worse. Sometimes with activity. Patient had a activity of chest pain today. Got relieved and came back to normal ranges. Pain went across the chest and both arms. Patient became short of breath. No dizziness lightheadedness. Started to break in a sweat. He got flooded and on his to bring him to the hospital. In the ER patient showed acute ST elevation infarction of the anterior wall. Patient is taking the cardiac catheterization laboratory technician. He went into ventricular fibrillation requiring brief CPR actively shocked 3 times. Patient did receive amiodarone. Initial cardiac catheterization by Dr. Pickering followed by the high school biology teacher, patient got a stent to the LAD. Postprocedure in the ICU. No further chest pain. Review of systems: GEN.: Tired EYES: None HEENT: None NECK: None RESPIRATORY: Sometimes wheezing CARDIOVASCULAR: As above GASTROINTESTINAL: None GENITOURINARY: None MUSCULOSKELETAL: Joint pains LYMPHATICS: None HEMATOLOGICAL: None PSYCHIATRY: None NEUROLOGICAL: None Past mental history to include: Hypertension, hyperlipidemia, osteoarthritis Social history: . Smoked a pack and half for close to 33 years. 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 Physical examination: VITAL SIGNS: 98.2, 61, 18, 120/87, 95% room air GENERAL: [BMI 23.6, laying in bed, comfortable. EYES: Pupils equal. Conjunctiva normal. HEENT: External appearance of nose and ears normal, oral cavity grossly normal. NECK: JVD not raised; masses not palpable. HEART: First and second heart sounds are normal; no edema. LUNGS: Respiratory rate normal; decreased breaths on some wheezing. ABDOMEN: Soft, nontender, liver spleen not palpable, no masses palpable. PSYCH: Alert and oriented x3; mood and affect normal. NEUROLOGICAL: Cranial nerves grossly intact; no facial asymmetry, power and sensation grossly intact. LYMPHATICS: No lymph nodes palpable in the axilla and neck INVESTIGATIONS, reviewed in the clinical context: White count 11.1 hemoglobin 15.9 platelets 308 potassium 4.7 creatinine 0.91 Troponin I 0.[address] elevation in anterior leads Chest x-ray film personally reviewed by me-possible chronic changes some hyperinflation Assessment: -Acute ST elevation microinfarction of the anterior wall. -Coronary artery disease with emergent cardiac catheterization leading to 6 drug-eluting stent to the LAD -COPD in a current smoker -Chronic nicotine dependence cigarette smoker -Essential hypertension Plan: Patient's currently in the ICU on aspirin Brilinta. We'll add Lipitor. SARA inhibitor. Care was discussed with the patient. Questions were answered. Follow with cardiology. Past Medical History Past Medical History: GERD/Reflux, Hypertension Additional Past Medical History / Comment(s): hx hypertension-no rx currently, "Pancreas problem", diarrhea, hypercholesterolemia History of Any Multi-Drug Resistant Organisms: None Reported Past Surgical History: Appendectomy Additional Past Surgical History / Comment(s): carotid endart. Past Anesthesia/Blood Transfusion Reactions: No Reported Reaction, Unable to Obtain Additional Past Anesthesia/Blood Transfusion Reaction / Comment(s): adopted-no family hx Past Psychological History: No Psychological Hx Reported Smoking Status: Current some day smoker Past Alcohol Use History: None Reported Past Drug Use History: Marijuana - Past Family History Father Family Medical History: Unable to Obtain Medications and Allergies Home Medications Medication Instructions Recorded Confirmed Type Aspirin 325 mg PO DAILY #30 tab 07/07/19 02/28/20 Rx Rosuvastatin [Crestor] 20 mg PO DAILY #30 tablet 07/07/19 02/28/20 Rx traMADol HCL [Ultram] 50 mg PO Q6HR PRN 07/07/19 02/28/20 History Losartan/Hydrochlorothiazide 0.5 tab PO DAILY 02/28/20 02/28/20 History [Losartan-Hctz 100-25 mg Tab] Allergies Allergy/AdvReac Type Severity Reaction Status Date / Time No Known Allergies Allergy Verified 02/28/20 12:50 Physical Exam Vitals: Vital Signs Temp Pulse Pulse Resp BP BP Pulse Ox 02/28/20 21:00 68 20 129/95 99 02/28/20 20:30 61 121/83 98 02/28/20 20:00 98.2 F 61 18 120/87 95 02/28/20 19:30 67 121/88 96 02/28/20 19:00 67 9 L 122/90 95 02/28/20 18:30 64 6 L 131/94 95 02/28/20 18:15 86 16 131/94 97 02/28/20 18:00 61 8 L 131/97 98 02/28/20 17:45 68 22 114/79 98 02/28/20 17:30 73 12 124/88 98 02/28/20 17:15 64 7 L 123/94 98 02/28/20 17:00 60 4 L 119/82 98 02/28/20 16:45 64 12 137/99 98 02/28/20 16:30 69 16 117/85 98 02/28/20 16:15 64 14 131/90 99 02/28/20 16:00 75 14 127/95 98 02/28/20 15:45 68 12 128/98 98 02/28/20 15:30 75 10 L 115/86 98 02/28/20 15:15 66 6 L 113/83 98 02/28/20 15:00 66 12 122/87 98 02/28/20 14:45 79 15 129/80 98 02/28/20 14:30 77 11 L 126/80 98 02/28/20 14:15 82 14 117/77 98 02/28/20 14:00 74 7 L 116/83 99 02/28/20 13:47 80 14 02/28/20 13:33 98.0 F 69 10 L 116/83 99 02/28/20 11:51 98.2 F 70 18 132/83 99 Intake and Output 02/28/20 02/28/20 02/28/20 06:59 14:59 22:59 Intake Total 190 727.029 Output Total 350 1250 Balance -160 -522.971 Intake: IV 150 40 Sodium Chloride 0.9% 1, 40 000 ml @ 20 mls/hr IV . Q24H JESSICA Rx#:[id number] Intake, IV Titration 40 147.029 Amount Heparin Sod,Pork in 0.45% 47.029 NaCl 25,000 unit In 0.45 % NaCl 1 250ml.bag @ 12 UNITS/KG/HR 8.709 mls/hr IV .Q24H JESSICA Rx#: [id number] Sodium Chloride 0.9% 1, 40 100 000 ml @ 20 mls/hr IV . Q24H JESSICA Rx#:[id number] Oral 540 Output: Urine 350 1250 Other: # Voids 2 Weight 72.575 kg Results CBC & Chem 7: 02/28/20 12:13 02/28/20 12:13 Labs: Abnormal Lab Results - Last 24 Hours (Table) 02/28/20 02/28/20 02/28/20 Range/Units 12:13 12:13 13:47 WBC 11.1 H (3.8-10.6) k/uL APTT (22.0-30.0) sec Glucose 149 H (74-99) mg/dL POC Glucose (mg/dL) 195 H (75-99) mg/dL Calcium 10.3 H (8.4-10.2) mg/dL 02/28/20 Range/Units 19:53 WBC (3.8-10.6) k/uL APTT 39.6 H (22.0-30.0) sec Glucose (74-99) mg/dL POC Glucose (mg/dL) (75-99) mg/dL Calcium (8.4-10.2) mg/dL Thrombosis Risk Factor Assmnt - Choose All That Apply Each Factor Represents 1 point: Acute NE, Age 41-60 years Other Risk Factors: No Other congenital or acquired thrombophilia - If yes, enter type in comment: No Thrombosis Risk Factor Assessment Total Risk Factor Score: 2 Thrombosis Risk Factor Assessment Level: Low Risk
[2020-02-28] MEDS: NICOTINE 21MG/24HR PATCH TRANSDERM SCH (23:53)
[2020-02-29 06:48] LABS: African American GFR (CKD) >90 (>60 ml/min/1.73 sqM); Non-African American GFR(CKD) >90 (>60 ml/min/1.73 sqM)
[2020-02-29] MEDS: IPRATROPIUM-ALBUTEROL 3 ML NEB INHALATION SCH ×4 (07:26→19:34)
--- NOTE | 2020-02-29 09:00 | ECHOF ---
Referral Reason:stemi MEASUREMENTS -------- HEIGHT: 175.3 cm WEIGHT: 72.6 kg BP: IVSd: 0.9 cm (0.6 - 1.1) LVIDd: 4.1 cm (3.9 - 5.3) LVPWd: 1.2 cm (0.6 - 1.1) IVSs: 1.4 cm LVIDs: 3.1 cm LVPWs: 1.4 cm LAESV Index (A-L): 18.93 ml/m Ao Diam: 2.9 cm (2.0 - 3.7) AV Cusp: 1.5 cm (1.5 - 2.6) LA Diam: 3.0 cm (2.7 - 3.8) MV EXCURSION: 16.721 mm (> 18.000) MV EF SLOPE: 170 mm/s (70 - 150) EPSS: 2.4 cm MV E Angel: 0.78 m/s MV DecT: 194 ms MV A Angel: 0.77 m/s MV E/A Ratio: 1.01 RAP: 5.00 mmHg RVSP: 11.09 mmHg FINDINGS -------- The left ventricular size is normal. Left ventricular wall thickness is normal. Overall left vent ricular systolic function is moderately impaired with, an EF between 35 - 40 %. Apical lateral LV w all motion is hypokinetic. Apical inferior LV wall motion is hypokinetic. Apical and mid septal LV wall motion is hypokinetic. The RV was not well visualized. The left atrial size is normal. Normal LA size by volume 22+/-6 ml/m2. The right atrium was not well visualized. 5.0mg of Lumason was utilized for enhancement of images The aortic valve was not well visualized. The mitral valve is normal. There is trace mitral regurgitation. The tricuspid valve appears structurally normal. Trace tricuspid regurgitation present. Right garret tricular systolic pressure is normal at < 35 mmHg. There is no pulmonic regurgitation present. The aortic root size is normal. IVC Not well visulized. There is no pericardial effusion. CONCLUSIONS -------- 1. The left ventricular size is normal. 2. Left ventricular wall thickness is normal. 3. Overall left ventricular systolic function is moderately impaired with, an EF between 35 - 40 %. 4. Apical lateral LV wall motion is hypokinetic. 5. Apical inferior LV wall motion is hypokinetic. 6. Apical septum LV wall motion is hypokinetic. 7. There is trace mitral regurgitation. 8. Trace tricuspid regurgitation present. 9. There is no pericardial effusion. SLOT SUPERVISOR: Mali Yang RDCS
[2020-02-29] MEDS: ASPIRIN 81 MG PO SCH (10:05)
[2020-02-29] MEDS: LOSARTAN 25 MG TAB PO SCH (10:05)
[2020-02-29] MEDS: TICAGRELOR 90 MG TAB PO SCH ×2 (10:05→20:31)
[2020-02-29] MEDS: NICOTINE 21MG/24HR PATCH TRANSDERM SCH (10:06)
[2020-02-29] MEDS: SODIUM CHLORIDE 0.9% 1,000 ML IV SCH (11:50)
[2020-02-29] MEDS: METOPROLOL SUCCINATE (ER) 25 MG TAB.ER.24H PO SCH (11:52)
--- NOTE | 2020-02-29 12:40 | PN ---
PROGRESS NOTE Patric is a 49-year-old gentleman, was admitted to hospital with acute anterior wall myocardial infarction, underwent cardiac catheterization and angioplasty. Echocardiogram shows an ejection fraction of 35%-40%. Patient is currently on aspirin, Lipitor, Cozaar and Brilinta. On exam, heart rate is 70 beats per minute. Blood pressure is 115/70, respiratory rate is 18. Chest exam reveals good air entry bilaterally. Heart exam reveals first and second heart sounds. No gallop. Exam of extremities did not reveal any edema. Peripheral pulses are felt. ASSESSMENT: Acute anterior wall myocardial infarction, status post catheterization and angioplasty. PLAN: I will add Toprol-XL to his current medical regimen. MMODL / IJN: [id number] /
--- NOTE | 2020-02-29 15:07 | P.PN ---
Progress Note - Text Progress Note Date: 02/29/20 Chief Complaint: Chest pain History of presenting complaint: This is a 49-year-old patient, follows with Dr. Owen. Chronic stable medical conditions include hypertension, hyperlipidemia, or strength right is. For last 5 days patient been having chest pain on and off. Progressively getting worse. Sometimes with activity. Patient had a activity of chest pain today. Got relieved and came back to normal ranges. Pain went across the chest and both arms. Patient became short of breath. No dizziness lightheadedness. Started to break in a sweat. He got flooded and on his to bring him to the hospital. In the ER patient showed acute ST elevation infarction of the anterior wall. Patient is taking the cardiac mushroom laborer. He went into ventricular fibrillation requiring brief CPR actively shocked 3 times. Patient did receive amiodarone. Initial cardiac catheterization by Dr. Pickering followed by the blanker operator, patient got a stent to the LAD. Today-sitting on bed. Comfortable. Has been out of bed. No chest pain no shortness breath. Feels well.. Consultation: [facility] Review of systems: Was done for constitutional, cardiovascular, GI, pulmonary. relevant finding as above Active Medications Al Hydroxide/Mg Hydroxide (Mag Hydrox/Al Hydrox/Simeth 30 Ml Cup) 30 ml PO Q4HR PRN PRN Reason: Heartburn Albuterol/Ipratropium (Ipratropium-Albuterol 3 Ml Neb) 3 ml INHALATION RT-QID [facility] Last Admin: 02/29/20 11:14 Dose: 3 ml Documented by: Aspirin (Aspirin 81 Mg) 81 mg PO DAILY [facility] Last Admin: 02/29/20 10:05 Dose: 81 mg Documented by: Atorvastatin Calcium (Atorvastatin 80 Mg Tab) 80 mg PO HS [facility] Atropine Sulfate (Atropine Sulfate 0.1 Mg/Ml 10ml Syringe) 0.5 mg IV ONCE PRN PRN Reason: Symptomatic Bradycardia Losartan Potassium (Losartan 25 Mg Tab) 12.5 mg PO DAILY [facility] Last Admin: 02/29/20 10:05 Dose: 12.5 mg Documented by: Metoprolol Succinate (Metoprolol Succinate (Er) 25 Mg Tab.Er.24h) 12.5 mg PO DAILY [facility] Last Admin: 02/29/20 11:52 Dose: 12.5 mg Documented by: Miscellaneous Information (Rx Info: Iv Contrast Was Given 1 Each Misc) 1 each MISCELLANE DAILY PRN PRN Reason: Per Protocol Stop: 03/01/20 13:33 Naloxone HCl (Naloxone 0.4 Mg/Ml 1 Ml Vial) 0.2 mg IV Q2M PRN PRN Reason: Opioid Reversal Nicotine (Nicotine 21mg/24hr Patch) 1 patch TRANSDERM DAILY [facility] Last Admin: 02/29/20 10:06 Dose: Not Given Documented by: Nitroglycerin (Nitroglycerin Sl Tabs 0.4 Mg Tab) 0.4 mg SUBLINGUAL Q5M PRN PRN Reason: Chest Pain Ticagrelor (Ticagrelor 90 Mg Tab) 90 mg PO BID [facility] Last Admin: 02/29/20 10:05 Dose: 90 mg Documented by: Zolpidem Tartrate (Zolpidem 5 Mg Tab) 5 mg PO HS PRN PRN Reason: Insomnia Last Admin: 02/28/20 20:51 Dose: 5 mg Documented by: Physical examination: VITAL SIGNS: 98.1, 75, 14, 118/74, 97% room air GENERAL: Propped up in bed, comfortable EYES: Pupils equal. Conjunctiva normal. NECK: JVD not raised; masses not palpable. HEART: First and second heart sounds are normal; no edema. LUNGS: Respiratory rate normal; decreased breaths on some wheezing. ABDOMEN: Soft, nontender, liver spleen not palpable, no masses palpable. PSYCH: Alert and oriented x3; mood and affect normal. INVESTIGATIONS, reviewed in the clinical context: Creatinine 0.86 Previous testing White count 11.1 hemoglobin 15.9 platelets 308 potassium 4.7 creatinine 0.91 Troponin I 0.[address] elevation in anterior leads Chest x-ray film personally reviewed by me-possible chronic changes some hyperinflation Assessment: -Acute ST elevation myocardial infarction of the anterior wall. -Coronary artery disease with emergent cardiac catheterization leading to 6 drug-eluting stent to the LAD -COPD in a current smoker -Chronic nicotine dependence cigarette smoker -Essential hypertension Plan: Toprol-XL was added to his medical regime. Discussed with the patient. To ambulate in the hallway as tolerated.
[2020-02-29] MEDS: ATORVASTATIN 80 MG TAB PO SCH (20:31)
[2020-02-29] MEDS: ZOLPIDEM 5 MG TAB PO PRN (23:06)
[2020-03-01] MEDS: IPRATROPIUM-ALBUTEROL 3 ML NEB INHALATION SCH ×4 (08:54→20:03)
[2020-03-01] MEDS: LOSARTAN 25 MG TAB PO SCH (09:10)
[2020-03-01] MEDS: NICOTINE 21MG/24HR PATCH TRANSDERM SCH (09:10)
[2020-03-01] MEDS: TICAGRELOR 90 MG TAB PO SCH ×2 (09:10→20:00)
[2020-03-01] MEDS: ASPIRIN 81 MG PO SCH (09:10)
[2020-03-01] MEDS: METOPROLOL SUCCINATE (ER) 25 MG TAB.ER.24H PO SCH (09:10)
--- NOTE | 2020-03-01 10:47 | P.PN ---
Subjective Progress Note Date: 03/01/20 This is a pleasant 49-year-old gentleman with documented history of hypertension, hyperlipidemia, nicotine dependence, who presented to the hospital with an acute anterior myocardial infarction. He underwent angioplasty with successful stenting of the proximal LAD. Patient was seen and examined this morning, denied any chest discomfort, breathing is stable. Blood pressure 108/70 with a heart rate in the 70s, 96% on room air. An echocardiogram with Doppler study was performed which revealed an ejection fraction of 35-40%. Apical lateral apical inferior and apical septal hypokinesia noted. Patient is currently on aspirin 81 mg daily, Lipitor 80 mg daily, Cozaar 12-1/2 mg daily, metoprolol 12-1/2 mg daily, Brilinta 90 mg one tablet by mouth twice a day and a nicotine patch. Objective - Vital Signs Vital signs: Vital Signs Temp 97.8 F 03/01/20 03:20 Pulse 76 03/01/20 09:06 Resp 16 03/01/20 08:00 BP 108/72 03/01/20 08:00 Pulse Ox 96 03/01/20 08:00 Intake & Output 02/29/20 03/01/20 03/01/20 18:59 06:59 18:59 Intake Total 490 240 180 Output Total 1150 Balance -660 240 180 Weight 69.9 kg 68.4 kg Intake: IV 40 Sodium Chloride 0.9% 1, 40 000 ml @ 20 mls/hr IV . Q24H JESSICA Rx#:[id number] Oral 450 240 180 Output: Urine 1150 Other: # Voids 0 1 - Exam PHYSICAL EXAMINATION: GENERAL: 49-year-old gentleman in no acute distress at the time of my examination HEENT: Head is atraumatic, normocephalic. Pupils equal, round. Sclera anicteric. Conjunctiva are clear. Mucous membranes of the mouth are moist. Neck is supple. There is no elevated jugular venous pressure. No carotid bruit is heard. HEART EXAMINATION: Heart S1, S2 normal. No murmur or gallop heard. CHEST EXAMINATION: Lungs are clear to auscultation and precussion. No chest wall tenderness is noted on palpation or with deep breathing. ABDOMEN: Soft, nontender. Bowel sounds are heard. No organomegaly noted. EXTREMITIES: 2+ peripheral pulses with no evidence of peripheral edema and no calf tenderness noted. Right groin soft, no evidence of any hematoma. NEUROLOGIC patient is awake, alert and oriented X3. . - Labs CBC & Chem 7: 02/28/20 12:13 02/29/20 06:15 Assessment and Plan Plan: Assessment and plan #1 acute anterior wall myocardial infarction status post angioplasty and stenting of the LAD #2 hypertension #3 hyperlipidemia #4 ischemic cardiomyopathy with documented ejection fraction of 35-40% #5 nicotine dependence Plan Patient has been encouraged to be up ambulating in his room today, we will continue with current medications and plan for possible discharge home in 24 hours if stable. DNP note has been reviewed, I agree with a documented findings and plan of care. Patient was seen and examined.
[2020-03-01 13:27] VITALS: BMI 22.2
--- NOTE | 2020-03-01 16:17 | P.PN ---
Progress Note - Text Progress Note Date: 03/01/20 Chief Complaint: Chest pain History of presenting complaint: This is a 49-year-old patient, follows with Dr. Owen. Chronic stable medical conditions include hypertension, hyperlipidemia, or strength right is. For last 5 days patient been having chest pain on and off. Progressively getting worse. Sometimes with activity. Patient had a activity of chest pain today. Got relieved and came back to normal ranges. Pain went across the chest and both arms. Patient became short of breath. No dizziness lightheadedness. Started to break in a sweat. He got flooded and on his to bring him to the hospital. In the ER patient showed acute ST elevation infarction of the anterior wall. Patient is taking the cardiac outside laborer. He went into ventricular fibrillation requiring brief CPR actively shocked 3 times. Patient did receive amiodarone. Initial cardiac catheterization by Dr. Pickering followed by the brand recorder, patient got a stent to the LAD. Today-stable. No cardiacsymptoms. Has been ambulating.. Consultation: [facility] Review of systems: Was done for constitutional, cardiovascular, GI, pulmonary. relevant finding as above Active Medications Al Hydroxide/Mg Hydroxide (Mag Hydrox/Al Hydrox/Simeth 30 Ml Cup) 30 ml PO Q4HR PRN PRN Reason: Heartburn Albuterol/Ipratropium (Ipratropium-Albuterol 3 Ml Neb) 3 ml INHALATION RT-QID [facility] Last Admin: 03/01/20 15:47 Dose: Not Given Documented by: Aspirin (Aspirin 81 Mg) 81 mg PO DAILY [facility] Last Admin: 03/01/20 09:10 Dose: 81 mg Documented by: Atorvastatin Calcium (Atorvastatin 80 Mg Tab) 80 mg PO HS [facility] Last Admin: 02/29/20 20:31 Dose: 80 mg Documented by: Atropine Sulfate (Atropine Sulfate 0.1 Mg/Ml 10ml Syringe) 0.5 mg IV ONCE PRN PRN Reason: Symptomatic Bradycardia Losartan Potassium (Losartan 25 Mg Tab) 12.5 mg PO DAILY [facility] Last Admin: 03/01/20 09:10 Dose: 12.5 mg Documented by: Metoprolol Succinate (Metoprolol Succinate (Er) 25 Mg Tab.Er.24h) 12.5 mg PO DAILY [facility] Last Admin: 03/01/20 09:10 Dose: 12.5 mg Documented by: Naloxone HCl (Naloxone 0.4 Mg/Ml 1 Ml Vial) 0.2 mg IV Q2M PRN PRN Reason: Opioid Reversal Nicotine (Nicotine 21mg/24hr Patch) 1 patch TRANSDERM DAILY [facility] Last Admin: 03/01/20 09:10 Dose: Not Given Documented by: Nitroglycerin (Nitroglycerin Sl Tabs 0.4 Mg Tab) 0.4 mg SUBLINGUAL Q5M PRN PRN Reason: Chest Pain Ticagrelor (Ticagrelor 90 Mg Tab) 90 mg PO BID [facility] Last Admin: 03/01/20 09:10 Dose: 90 mg Documented by: Zolpidem Tartrate (Zolpidem 5 Mg Tab) 5 mg PO HS PRN PRN Reason: Insomnia Last Admin: 02/29/20 23:06 Dose: 5 mg Documented by: Physical examination: VITAL SIGNS:97.8, 79, 16, 108/72, 96% room air GENERAL: Propped up in bed, comfortable EYES: Pupils equal. Conjunctiva normal. NECK: JVD not raised; masses not palpable. HEART: First and second heart sounds are normal; no edema. LUNGS: Respiratory rate normal; decreased breaths on some wheezing. ABDOMEN: Soft, nontender, liver spleen not palpable, no masses palpable. PSYCH: Alert and oriented x3; mood and affect normal. INVESTIGATIONS, reviewed in the clinical context: Creatinine 0.86 Previous testing White count 11.1 hemoglobin 15.9 platelets 308 potassium 4.7 creatinine 0.91 Troponin I 0.[address] elevation in anterior leads Chest x-ray film personally reviewed by me-possible chronic changes some hyperinflation 2-D echocardiogram-EF 35-40%-multiple wall motion abnormality. Assessment: -Acute ST elevation myocardial infarction of the anterior wall. -Coronary artery disease with emergent cardiac catheterization leading to drug- eluting stent to the LAD -COPD in a current smoker -Chronic nicotine dependence cigarette smoker -Essential hypertension -Acute congestive heart failure from systolic dysfunction EF 35-40%, from acute MA Plan: continue current medication. Care was discussed with the patient. Continue to ambulate. add Aldactone 12.5 mg day.
[2020-03-01] MEDS: ATORVASTATIN 80 MG TAB PO SCH (20:00)
[2020-03-01] MEDS: ZOLPIDEM 5 MG TAB PO PRN (22:54)
[2020-03-02 00:49] VITALS: RESP 16
[2020-03-02 04:27] VITALS: TEMP 98.3
[2020-03-02] MEDS: IPRATROPIUM-ALBUTEROL 3 ML NEB INHALATION SCH ×3 (08:01→16:13)
[2020-03-02] MEDS ORDERED: SPIRONOLACTONE 25 MG TAB PO SCH (09:00)
[2020-03-02] MEDS: ASPIRIN 81 MG PO SCH (09:22)
[2020-03-02] MEDS: METOPROLOL SUCCINATE (ER) 25 MG TAB.ER.24H PO SCH (09:22)
[2020-03-02] MEDS: TICAGRELOR 90 MG TAB PO SCH (09:23)
[2020-03-02] MEDS: NICOTINE 21MG/24HR PATCH TRANSDERM SCH (09:24)
--- NOTE | 2020-03-02 11:24 | P.PN ---
Subjective Progress Note Date: 03/02/20 This is a pleasant 49-year-old gentleman with documented history of hypertension, hyperlipidemia, nicotine dependence, who presented to the hospital with an acute anterior myocardial infarction. He underwent angioplasty with successful stenting of the proximal LAD. Patient was seen and examined this morning, denied any chest discomfort, breathing is stable. Blood pressure 108/70 with a heart rate in the 70s, 96% on room air. An echocardiogram with Doppler study was performed which revealed an ejection fraction of 35-40%. Apical lateral apical inferior and apical septal hypokinesia noted. Patient is currently on aspirin 81 mg daily, Lipitor 80 mg daily, Cozaar 12-1/2 mg daily, metoprolol 12-1/2 mg daily, Brilinta 90 mg one tablet by mouth twice a day and a nicotine patch. 03/02/2020 Patient was seen and examined this morning, denied any chest discomfort and is breathing overall is stable. On review of the patient's rhythm strips it was noted that he had a run of nonsustained ventricular tachycardiac, 9 complexes. His blood pressure this morning 139/90 with a heart rate in the 80s. We will increase his dose of beta shamar as well as increasing his dose of Cozaar. Continue the baby aspirin along with Brilinta and statin. Patient has been recommended to be fitted with a LifeVest for prevention of sudden cardiac . From our perspective once the LifeVest is placed the patient should be able to be discharged home today. We will make him a follow-up appointment with Dr. Queen in the office in one week. Objective - Vital Signs Vital signs: Vital Signs Temp 98.3 F 03/02/20 04:00 Pulse 89 03/02/20 04:00 Resp 16 03/02/20 04:00 BP 112/73 03/02/20 04:00 Pulse Ox 98 03/02/20 04:00 Intake & Output 03/01/20 03/02/20 03/02/20 18:59 06:59 18:59 Intake Total 840 540 230 Output Total 0 Balance 840 540 230 Weight 68.4 kg 67.5 kg Intake: Oral 840 540 230 Output: Urine 0 Other: Voiding Method Toilet # Voids 1 1 - Exam PHYSICAL EXAMINATION: GENERAL: 49-year-old gentleman in no acute distress at the time of my examination HEENT: Head is atraumatic, normocephalic. Pupils equal, round. Sclera anicteric. Conjunctiva are clear. Mucous membranes of the mouth are moist. Neck is supple. There is no elevated jugular venous pressure. No carotid bruit is heard. HEART EXAMINATION: Heart S1, S2 normal. No murmur or gallop heard. CHEST EXAMINATION: Lungs are clear to auscultation and precussion. No chest wall tenderness is noted on palpation or with deep breathing. ABDOMEN: Soft, nontender. Bowel sounds are heard. No organomegaly noted. EXTREMITIES: 2+ peripheral pulses with no evidence of peripheral edema and no calf tenderness noted. Right groin soft, no evidence of any hematoma. NEUROLOGIC patient is awake, alert and oriented X3. . - Labs CBC & Chem 7: 02/28/20 12:13 02/29/20 06:15 Assessment and Plan Plan: Assessment and plan #1 acute anterior wall myocardial infarction status post angioplasty and stenting of the LAD #2 hypertension #3 hyperlipidemia #4 ischemic cardiomyopathy with documented ejection fraction of 35-40% #5 nicotine dependence #6 nonsustained ventricular tachycardia Plan Patient will be fitted with a LifeVest today for prevention of sudden cardiac , as he presented with an acute myocardial infarction, ejection fraction 35-40%, run of nonsustained ventricular tachycardia. Once a LifeVest is placed the patient should be able to be discharged home today, follow-up with Dr. Queen in the office in one week. Patient will be discharged home on increased dose of beta shamar, Cozaar, baby aspirin, Brilinta 90 mg twice a day and statin along with sublingual nitroglycerin. DNP note has been reviewed, I agree with a documented findings and plan of care. Patient was seen and examined.
[2020-03-02 12:38] VITALS: BP 129/86; PULSE 65
--- NOTE | 2020-03-02 14:16 | P.PN ---
Progress Note - Text Progress Note Date: 03/02/20 This is an addendum to the cardiology progress note dictated earlier today. Echocardiogram with Doppler study was performed which revealed an ejection fraction of 35%, patient recommended to be fitted for a LifeVest for prevention of sudden cardiac . This will be performed later today, following the patient may be able to be discharged home from our perspective. DNP note has been reviewed, I agree with a documented findings and plan of care. Patient was seen and examined.
[2020-03-02] MEDS ORDERED: LOSARTAN 25 MG TAB PO SCH ×2 (21:00)
[2020-03-03] MEDS ORDERED: METOPROLOL SUCCINATE (ER) 25 MG TAB.ER.24H PO SCH (09:00)
--- NOTE | 2020-03-03 22:59 | P.DS ---
Providers Date of admission: 02/28/20 12:28 Expected date of discharge: 03/02/20 Attending physician: Klaus Peña Consults: 02/28/20 12:56 Consult Physician Routine Consulting Provider: Casey Queen Consult Reason/Comments: stemi Do you want consulting provider notified?: Already Contacted 02/28/20 13:33 Consult Physician Routine Consulting Provider: Mary Ludwig Consult Reason/Comments: Post Interventional patient Do you want consulting provider notified?: Already Contacted Primary care physician: Jarrett [facility]beto [facility] Course: Chief Complaint: Chest pain History of presenting complaint: This is a 49-year-old patient, follows with Dr. Owen. Chronic stable medical conditions include hypertension, hyperlipidemia, or strength right is. For last 5 days patient been having chest pain on and off. Progressively getting worse. Sometimes with activity. Patient had a activity of chest pain today. Got relieved and came back to normal ranges. Pain went across the chest and both arms. Patient became short of breath. No dizziness lightheadedness. Started to break in a sweat. He got flooded and on his to bring him to the hospital. In the ER patient showed acute ST elevation infarction of the anterior wall. Patient is taking the cardiac laborer bituminous paving. He went into ventricular fibrillation requiring brief CPR actively shocked 3 times. Patient did receive amiodarone. Initial cardiac catheterization by Dr. Pickering followed by the edging supervisor, patient got a stent to the LAD. 2-D echo showed EF of 35-40%. Today-stable. Ambulate 3. No cardiac symptoms. Doing well. Discussed with the patient. Consultation: [facility] Physical examination: VITAL SIGNS: 98.3, 87, 16, 119/80, 98% on room air GENERAL: Sitting up, comfortable EYES: Pupils equal. Conjunctiva normal. NECK: JVD not raised; masses not palpable. HEART: First and second heart sounds are normal; no edema. LUNGS: Respiratory rate normal; decreased breaths on some wheezing. ABDOMEN: Soft, nontender, liver spleen not palpable, no masses palpable. PSYCH: Alert and oriented x3; mood and affect normal. INVESTIGATIONS, reviewed in the clinical context: Creatinine 0.86 Previous testing White count 11.1 hemoglobin 15.9 platelets 308 potassium 4.7 creatinine 0.91 Troponin I 0.[address] elevation in anterior leads Chest x-ray film personally reviewed by me-possible chronic changes some hyperinflation 2-D echocardiogram-EF 35-40%-multiple wall motion abnormality. Assessment: -Acute ST elevation myocardial infarction of the anterior wall. -Coronary artery disease with emergent cardiac catheterization leading to drug- eluting stent to the LAD -COPD in a current smoker -Chronic nicotine dependence cigarette smoker -Essential hypertension -Acute congestive heart failure from systolic dysfunction EF 35-40%, from acute PA Disposition: Home Patient Condition at Discharge: Stable Plan - Discharge Summary Discharge Rx Participant: No New Discharge Prescriptions: New Spironolactone [Aldactone] 12.5 mg PO DAILY #30 tab Aspirin 81 mg PO DAILY chew Ticagrelor [Brilinta] 90 mg PO BID #60 tab Losartan [Cozaar] 25 mg PO HS #30 tab Nicotine 21Mg/24Hr Patch [Habitrol] 1 patch TRANSDERM DAILY #14 patch Atorvastatin [Lipitor] 80 mg PO HS #30 tab Nitroglycerin Sl Tabs [Nitrostat] 0.4 mg SUBLINGUAL Q5M PRN #25 tab PRN Reason: Chest Pain Metoprolol Succinate (ER) [Toprol XL] 25 mg PO DAILY #30 tab.er.24h Continue traMADol HCL [Ultram] 50 mg PO Q6HR PRN PRN Reason: Pain Discontinued Aspirin 325 mg PO DAILY #30 tab Rosuvastatin [Crestor] 20 mg PO DAILY #30 tablet Losartan/Hydrochlorothiazide [Losartan-Hctz 100-25 mg Tab] 0.5 tab PO DAILY Discharge Medication List traMADol HCL [Ultram] 50 mg PO Q6HR PRN 07/07/19 [History] Aspirin 81 mg PO DAILY chew 03/02/20 [Rx] Atorvastatin [Lipitor] 80 mg PO HS #30 tab 03/02/20 [Rx] Losartan [Cozaar] 25 mg PO HS #30 tab 03/02/20 [Rx] Metoprolol Succinate (ER) [Toprol XL] 25 mg PO DAILY #30 tab.er.24h 03/02/20 [Rx] Nicotine 21Mg/24Hr Patch [Habitrol] 1 patch TRANSDERM DAILY #14 patch 03/02/20 [Rx] Nitroglycerin Sl Tabs [Nitrostat] 0.4 mg SUBLINGUAL Q5M PRN #25 tab 03/02/20 [Rx] Spironolactone [Aldactone] 12.5 mg PO DAILY #30 tab 03/02/20 [Rx] Ticagrelor [Brilinta] 90 mg PO BID #60 tab 03/02/20 [Rx] Follow up Appointment(s)/Referral(s): Benjy Owen MD [Primary Care Provider] - 1-2 days Casey Queen MD [STAFF PHYSICIAN] - 1 Week Patient Instructions/Handouts: *Surgery [facility] - After Heart Catheterization - Motion And Time Study Teacher Instructions, Heart Attack (DC) Discharge Disposition: HOME SELF-CARE
== END 2020-03-02 18:23 | disposition home or self-care (01) | DRG 246 ==
LOC: EC 11:48 → 2SICU 12:28 → 3SCARD 02-29 18:40
PROVIDERS: ADMIT Hospitalist; ATTEND Hospitalist
PROC: 027034Z Dilation of Coronary Artery, One Artery with Drug-eluting Intraluminal Device, Percutaneous Approach (ICD-10-PCS; principal; 2020-02-28 14:30)
PROC: 4A023N7 Measurement of Cardiac Sampling and Pressure, Left Heart, Percutaneous Approach (ICD-10-PCS; 2020-02-28 14:30)
PROC: 5A12012 Performance of Cardiac Output, Single, Manual (ICD-10-PCS; 2020-02-28 14:30)
PROC: B2111ZZ Fluoroscopy of Multiple Coronary Arteries using Low Osmolar Contrast (ICD-10-PCS; 2020-02-28 14:30)
DX: I21.09 ST elevation (STEMI) myocardial infarction involving other coronary artery of anterior wall (principal); I49.01 Ventricular fibrillation; I50.21 Acute systolic (congestive) heart failure; I47.2 Ventricular tachycardia; I25.5 Ischemic cardiomyopathy; I11.0 Hypertensive heart disease with heart failure; J44.9 Chronic obstructive pulmonary disease, unspecified; I73.9 Peripheral vascular disease, unspecified; I25.10 Atherosclerotic heart disease of native coronary artery without angina pectoris; E78.00 Pure hypercholesterolemia, unspecified; E78.5 Hyperlipidemia, unspecified; F17.210 Nicotine dependence, cigarettes, uncomplicated; K21.9 Gastro-esophageal reflux disease without esophagitis; M19.90 Unspecified osteoarthritis, unspecified site; Z79.82 Long term (current) use of aspirin; Z79.899 Other long term (current) drug therapy; Z90.49 Acquired absence of other specified parts of digestive tract; Z87.19 Personal history of other diseases of the digestive system; Z98.890 Other specified postprocedural states
CPT/HCPCS: 71045; 80053; 82565; 83735; 83880; 84484; 85025; 85610; 85730; 93005; 93306; 93458; 94640; 96374; 99285

== ENCOUNTER → 2023-11-25 | Outpatient (CLI) | payer BC ==
[2023-11-25 13:57] LABS: Basophils # (A) 0.1 k/uL (0-0.2); Basophils % (A) 1 %; Eosinophils # (A) 0.2 k/uL (0-0.7); Eosinophils % (A) 2 %; HCT 41.4 % (39.0-53.0); HGB 14.2 gm/dL (13.0-17.5); Lymphocytes # (A) 3.9 k/uL (1.0-4.8); Lymphocytes % (A) 43 %; MCH 31.8 pg (25.0-35.0); MCHC 34.3 g/dL (31.0-37.0); MCV 92.9 fL (80.0-100.0); Mean Platelet Volume 8.4; Monocytes # (A) 0.5 k/uL (0-1.0); Monocytes % (A) 6 %; Neutrophils # (A) 4.3 k/uL (1.3-7.7); Neutrophils % (A) 47 %; Platelet Count 216 k/uL (150-450); RBC 4.46 m/uL (4.30-5.90); RDW 12.7 % (11.5-15.5); WBC 9.2 k/uL (3.8-10.6)
[2023-11-25 14:22] LABS: African American GFR (CKD) >90 (>60 ml/min/1.73 sqM); Anion Gap 3 mmol/L; Blood Urea Nitrogen 8 mg/dL (9-20); Carbon Dioxide 30 mmol/L (22-30); Chloride 103 mmol/L (98-107); Non-African American GFR(CKD) >90 (>60 ml/min/1.73 sqM); Potassium 4.2 mmol/L (3.5-5.1); Sodium 136 mmol/L (137-145)
== END | disposition home or self-care (01) ==
LOC: LABPAT 13:19
PROVIDERS: ATTEND Internal Medicine
DX: Z01.812 Encounter for preprocedural laboratory examination (principal); I70.213 Atherosclerosis of native arteries of extremities with intermittent claudication, bilateral legs
CPT/HCPCS: 36415; 80051; 82565; 84520; 85025

== ENCOUNTER 2023-11-26 08:29 | Day surgery (SDC) | payer BC ==
[2023-11-26] MEDS: IV FLUID CONTINUATION 1,000 ML IV ONE (09:06)
[2023-11-26] MEDS: EMPTY BAG 1 BAG with SODIUM CHLORIDE 0.9% 1,000 ML IV SCH (09:06)
[2023-11-26] MEDS: LIDOCAINE 1% INJ 10MG/ML (20 ML MDV) SQ ONE (10:35)
[2023-11-26] MEDS: MIDAZOLAM 2 MG/2 ML VIAL IVP ONE (10:35)
[2023-11-26] MEDS: fentaNYL (PF) 50 MCG/1 ML VIAL IVP ONE ×2 (10:35→10:40)
[2023-11-26] MEDS: VERAPAMIL 2.5 MG/ML 4 ML VIAL INTRAARTER ONE (10:37)
[2023-11-26] MEDS: HEPARIN SODIUM 1,000 UN/ML (10ML VL) IVP ONE ×2 (10:40→12:01)
[2023-11-26] MEDS: IOPAMIDOL-250 100ML BTL INTRAARTER ONE ×2 (11:21)
[2023-11-26] MEDS: CLOPIDOGREL 75 MG TAB PO ONE (11:22)
--- NOTE | 2023-11-26 12:48 | IR ---
EXAMINATION TYPE: IR stent intravas non coronary DATE OF EXAM: 11/26/2023 COMPARISON: NONE HISTORY: Fluoroscopy time. Fluoroscopy was provided to the referring clinician.
[2023-11-26] MEDS: traMADol 50 MG TAB PO STA (13:21)
[2023-11-26] MEDS ORDERED: traMADol 50 MG TAB PO PRN (16:30)
--- NOTE | 2023-11-26 16:30 | P.PCN ---
Description of Procedure: PROCEDURES PERFORMED: Abdominal angiography with bilateral runoff, IVUS right and left common iliac arteries, LABOR RELATIONS CONSULTANT and stent of right common iliac artery into external iliac artery with a 8.0 x 59mm Omnilink stent, LABOR RELATIONS CONSULTANT and stent of left common iliac artery with a 8.0 x 19mm Omnilink stent INDICATION: Claudication, PAD, abnormal ultrasound CONSENT:I have discussed the risks, benefits and alternative therapies for the above-mentioned procedure and for both sedation/analgesia as well as necessary blood product administration, if indicated, as they pertain to this patient. The patient has indicated understanding and acceptance of the risks and procedures discussed. PROCEDURE: After the risks, benefits and alternatives of the above mentioned procedure explained in detail with the patient, informed consent was obtained. Patient was taken to the catheterization lab and prepped and draped in usual fashion. 1% lidocaine was used to anesthetize the right radial area. A 6- Divehi sheath was placed in the right radial artery using modified Seldinger technique and ultrasound guidance. A 5-Divehi pigtail catheter was inserted to the abdominal aorta and DSA imaging was obtained. Patient tolerated the diagnostic portion well. Decision was made to perform IVUS and LABOR RELATIONS CONSULTANT/stent of bilateral common iliac arteries. Therefore 2 6Fr sheaths were placed in the right and left common femoral artery using ultrasound guidance and micropuncture. Over a 0.014 BMW wire, IVUS was performed which showed diffuse disease, reference vessel 7.5- 8.0mm with 80% stenosis on the left and 75% stenosis on the right. Pre balloon angioplasty was peroformed with a 7.0mm balloon bilaterally. A 8.0 x 19mm Omnilink stent was placed in the left common iliac artery. A 8.0 x 59mm Omnlink was placed in the right common iliac into external iliac artery. Final angiograms were performed as well as repeat IVUS of the right iliac artery. Pre intervention there was unimpeded antegrade flow and post intervention there was unimpeded antegrade flow with no dissection. A right and left femoral angiogram was performed and anatomoy was suitable for closure. A 6Fr Angioseal was placed bilaterally with hemostasis achieved. A TR band was placed on the right radial artery and hemostasis was achieved. The patient tolerated the procedure well. Patient was transported back to the post catheterization holding area in stable condition. Conscious Sedation: Patient was monitored under the direct supervision of vision of myself for conscious sedation using Versed and fentanyl for a total duration of 95 minutes Abdominal aorta: The abdominal aorta has no calcifcation. Renal arteries are patent. There is no significant dissection or aneurysm. There is no significant stenosis. Right lower extremity: Right common iliac artery: There is mid to distal 75% stenosis. Right external iliac artery: There is no significant stenosis. Right internal iliac artery: There is no significant stenosis. Right common femoral artery: There is no significant stenosis. Right profunda: There is no significant stenosis. Right SFA: There is no significant stenosis. Right popliteal artery: There is no significant stenosis. Right tibioperoneal trunk: There is no significant stenosis. Right anterior tibial artery: There is no significant stenosis. Right posterior tibial artery: There is no significant stenosis. Right peroneal artery: There is no significant stenosis. Left lower extremity: Left common iliac artery: There is diffuse 20-30% stenosis and a more focal distal 80% stenosis. Left external iliac artery: There is no significant stenosis. Left internal iliac artery: There is no significant stenosis. Left common femoral artery: There is no significant stenosis. Left profunda: There is no significant stenosis. Left SFA: There is no significant stenosis. Left popliteal artery: There is no significant stenosis. Left tibioperoneal trunk: There is no significant stenosis. Left anterior tibial artery: There is no significant stenosis. Left posterior tibial artery: There is no significant stenosis. Left peroneal artery: There is no significant stenosis. FINAL IMPRESSION: 1. Peripheral arterial disease as described above with 75% right common iliac and 80% left common iliac artery stenosis. 2. S/p LABOR RELATIONS CONSULTANT and stent of right common iliac artery into external iliac artery with a 8.0 x 59mm Omnilink stent, LABOR RELATIONS CONSULTANT and stent of left common iliac artery with a 8.0 x 19mm Omnilink stent PLAN: 1. Aggressive risk factor modification per most recent ACC/AHA guidelines. 2. Continue dual antiplatelets with aspirin and Plavix for 3 months 3. Tobacco cessation discussed in detail with patient. Patient was additionally given information on [employer] Line.
[2023-11-26] MEDS ORDERED: NALOXONE 0.4 MG/ML 1 ML VIAL IVP PRN (16:31)
[2023-11-26] MEDS: ATORVASTATIN 80 MG TAB PO SCH (19:42)
[2023-11-26] MEDS: ZOLPIDEM 5 MG TAB PO STA (21:08)
[2023-11-26 23:43] VITALS: RESP 18
[2023-11-27 05:03] VITALS: PULSE 69
[2023-11-27 05:04] VITALS: BP 116/72; TEMP 97.9
[2023-11-27] MEDS: SPIRONOLACTONE 25 MG TAB PO SCH (08:44)
[2023-11-27] MEDS: VENLAFAXINE HCL 75 MG TAB PO SCH (08:44)
[2023-11-27] MEDS: ASPIRIN 81 MG PO SCH (08:44)
[2023-11-27] MEDS: CLOPIDOGREL 75 MG TAB PO SCH (08:45)
[2023-11-27] MEDS: LOSARTAN 50 MG TAB PO SCH (08:45)
[2023-11-27] MEDS: METOPROLOL SUCCINATE (ER) 25 MG TAB.ER.24H PO SCH (08:45)
--- NOTE | 2023-11-27 14:42 | P.DS ---
Providers Attending physician: Juan C Terry DO Primary care physician: [facility] Course: patient is pleasant 53-year-old male with history of PAD with claudication bilaterally to presented 11/26/2023 for abdominal angiogram with runoff. Angiogram showed bilateral common iliac disease and patient underwent stenting of the bilateral common iliac arteries from a femoral approach. He did well with the procedure and has not had a abdominal or femoral pain. He did have small hematoma and a FemoStop was placed briefly, pressure held and hemostasis achieved with reduction and hematoma. On 11/26 years ambulating to the bathroom without difficulty. He has 2 out of 4 bilateral femoral and dorsalis pedis, posterior tibial pulses. His stable for discharge home on aspirin and Plavix for 3 months. Plan - Discharge Summary Discharge Rx Participant: No New Discharge Prescriptions: New Clopidogrel [Plavix] 75 mg PO DAILY #90 tab No Action traMADol HCL [Ultram] 50 mg PO Q6HR PRN PRN Reason: Pain Spironolactone [Aldactone] 12.5 mg PO DAILY #30 tab Aspirin 81 mg PO DAILY chew Nitroglycerin Sl Tabs [Nitrostat] 0.4 mg SUBLINGUAL Q5M PRN #25 tab PRN Reason: Chest Pain Metoprolol Succinate (ER) [Toprol XL] 25 mg PO DAILY #30 tab.er.24h Irbesartan 150 mg PO QAM Venlafaxine HCl 75 mg PO QAM Rosuvastatin Calcium 40 mg PO HS Discharge Medication List traMADol HCL [Ultram] 50 mg PO Q6HR PRN 07/07/19 [History] Aspirin 81 mg PO DAILY chew 03/02/20 [Rx] Metoprolol Succinate (ER) [Toprol XL] 25 mg PO DAILY #30 tab.er.24h 03/02/20 [Rx] Nitroglycerin Sl Tabs [Nitrostat] 0.4 mg SUBLINGUAL Q5M PRN #25 tab 03/02/20 [Rx] Spironolactone [Aldactone] 12.5 mg PO DAILY #30 tab 03/02/20 [Rx] Irbesartan 150 mg PO QAM 11/24/23 [History] Rosuvastatin Calcium 40 mg PO HS 11/24/23 [History] Venlafaxine HCl 75 mg PO QAM 11/24/23 [History] Clopidogrel [Plavix] 75 mg PO DAILY #90 tab 11/27/23 [Rx] Follow up Appointment(s)/Referral(s): Juan C Terry DO [STAFF PHYSICIAN] - 1 Week (APPOINTMENT MADE ON November @ 1:45PM AT THE [facility] OFFICE LOCATION ) Patient Instructions/Handouts: Peripheral Vascular Disease (ED), Moderate Sedation (DC) Activity/Diet/Wound Care/Special Instructions: *NO LIFTING, PUSHING, OR PULLING ANYTHING OVER 5 POUNDS FOR 5 DAYS *NO DRIVING FOR 3 DAYS *YOU CAN REMOVE YOUR DRESSING TOMORROW BUT DO NOT SUBMERSE YOUR PUNCTURE SITE IN WATER FOR A FEW DAYS TO PREVENT INFECTION - SO NO TUB BATHS, POOLS, HOT TUBS, DISHES...ETC *ANY SIGNS OF BLEEDING (HARDNESS, SWELLING, OR EXCESSIVE BRUISING) HOLD DIRECT PRESSURE ON YOUR PUNCTURE SITE AND COME TO THE NEAREST EMERGENCY ROOM TO GET YOUR PUNCTURE SITE LOOKED AT - DO NOT DRIVE YOURSELF! EITHER CALL EMS OR HAVE SOMEONE DRIVE YOU Discharge Disposition: HOME SELF-CARE
== END 2023-11-27 09:11 | disposition home or self-care (01) ==
LOC: CATHCVL 08:29 → 3SCARD 12:10 → CATHCVL 11-27 09:11
PROVIDERS: ATTEND Internal Medicine
DX: T82.858A Stenosis of other vascular prosthetic devices, implants and grafts, initial encounter (principal); I70.213 Atherosclerosis of native arteries of extremities with intermittent claudication, bilateral legs; Z79.02 Long term (current) use of antithrombotics/antiplatelets; Z79.82 Long term (current) use of aspirin; Z79.899 Other long term (current) drug therapy; Z95.5 Presence of coronary angioplasty implant and graft
CPT/HCPCS: 37221; 75625; 75716; 76937; 37252; 37253; 99152; 99153 ×5; J2250; J2001; J1644; Q9966; J3010

== ENCOUNTER 2024-08-13 07:00 | Emergency (ER) | payer BC ==
[2024-08-13 07:07] VITALS: TEMP 98.2
--- NOTE | 2024-08-13 07:33 | ED ---
Chest Pain HPI - General Chief Complaint: Chest Pain Stated Complaint: chest pain,abd pain Time Seen by Provider: 08/13/24 07:05 Source: patient, EMS Mode of arrival: EMS - History of Present Illness Initial Comments: 53-year-old male with past medical history of coronary disease with stent placement, peripheral serial disease with stent placement, pancreatitis who presents to the emergency department reporting chest pain. States the pain started this morning. He has associated diaphoresis, nausea with a small mount of vomiting. He did take 4 baby aspirin's at home and called EMS. EMS did provide him with 2 mg of morphine and on nitro. Patient states that his pain was not alleviated by any of these medications. He states that the pain does not feel similar. Describes it as a pressure sensation in the central portion of his chest without radiation. He denies numbness, tingling or weakness in his extremities. No ripping or tearing station to his back. Patient follows with Dr. Vazquez. He has 1 stent in his LAD. Patient denies feeling short of breath. Reports that he recently got off of a course of steroids for an upper respiratory infection. Steroids were finished 2 days ago. He denies any fevers, chills or cough. No other alleviating, precipitating modifying factors - Related Data Home Medications Medication Instructions Recorded Confirmed traMADol HCL [Ultram] 50 mg PO Q6HR PRN 07/07/19 11/26/23 Irbesartan 150 mg PO QAM 11/24/23 11/26/23 Rosuvastatin Calcium 40 mg PO HS 11/24/23 11/26/23 Venlafaxine HCl 75 mg PO QAM 11/24/23 11/26/23 Previous Rx's Medication Instructions Recorded Aspirin 81 mg PO DAILY chew 03/02/20 Metoprolol Succinate (ER) [Toprol 25 mg PO DAILY #30 tab.er.24h 03/02/20 XL] Nitroglycerin Sl Tabs [Nitrostat] 0.4 mg SUBLINGUAL Q5M PRN #25 tab 03/02/20 Spironolactone [Aldactone] 12.5 mg PO DAILY #30 tab 03/02/20 Clopidogrel [Plavix] 75 mg PO DAILY #90 tab 11/27/23 Allergies Allergy/AdvReac Type Severity Reaction Status Date / Time No Known Allergies Allergy Verified 08/13/24 07:07 Review of Systems ROS Statement: Those systems with pertinent positive or pertinent negative responses have been documented in the HPI. ROS Other: All systems not noted in ROS Statement are negative. Past Medical History Past Medical History: GERD/Reflux, Hypertension, Myocardial Infarction ([place]) Additional Past Medical History / Comment(s): PER PATIENT, PAIN BURNING IN LOWER EXTREMITIES. PATIENT STATES PROBLEM WITH PANCREAS. Last Myocardial Infarction Date:: 02/28/20 History of Any Multi-Drug Resistant Organisms: None Reported Past Surgical History: Appendectomy, Heart Catheterization With Stent Additional Past Surgical History / Comment(s): carotid endart. Past Anesthesia/Blood Transfusion Reactions: Unable to Obtain Additional Past Anesthesia/Blood Transfusion Reaction / Comment(s): adopted-no family hx Date of Last Stent Placement:: 02/28/20 Past Psychological History: No Psychological Hx Reported Smoking Status: Current some day smoker Past Alcohol Use History: None Reported Past Drug Use History: Marijuana - Past Family History Father Family Medical History: Unable to Obtain General Exam Limitations: no limitations General appearance: alert, in distress Head exam: Present: atraumatic, normocephalic, normal inspection Eye exam: Present: normal appearance, PERRL, EOMI. Absent: scleral icterus, conjunctival injection, periorbital swelling ENT exam: Present: normal exam, mucous membranes moist Neck exam: Present: normal inspection. Absent: tenderness, meningismus, lymphadenopathy Respiratory exam: Present: normal lung sounds bilaterally. Absent: respiratory distress, wheezes, rales, rhonchi, stridor Cardiovascular Exam: Present: regular rate, normal rhythm, normal heart sounds. Absent: systolic murmur, diastolic murmur, rubs, gallop, clicks GI/Abdominal exam: Present: soft, normal bowel sounds. Absent: distended, tenderness, guarding, rebound, rigid Extremities exam: Present: normal inspection, full ROM, normal capillary refill. Absent: tenderness, pedal edema, joint swelling, calf tenderness Back exam: Present: normal inspection Neurological exam: Present: alert, oriented X3, CN II-XII intact Psychiatric exam: Present: normal affect, normal mood Skin exam: Present: warm, intact, normal color, diaphoretic. Absent: rash Course Vital Signs 08/13/24 08/13/24 08/13/24 07:04 07:20 08:10 Temperature 98.2 F Pulse Rate 60 61 53 L Respiratory 18 18 18 Rate Blood Pressure 133/92 146/97 133/99 O2 Sat by Pulse 97 99 96 Oximetry Chest Pain MDM - MDM Was pt. sent in by a medical professional or institution (, EPI, MINIATURE SET BUILDER, urgent care, hospital, or senior care...) When possible be specific @ -[No] Did you speak to anyone other than the patient for history (EMS, parent, family, police, friend...)? What history was obtained from this source @ -[No] Did you review nursing and triage notes (agree or disagree)? Why? @ -[I reviewed and agree with nursing and triage notes] Were old charts reviewed (outside hosp., previous admission, EMS record, old EKG, old radiological studies, urgent care reports/EKG's, senior care records)? Report findings @ -[No old charts were reviewed] Differential Diagnosis (chest pain, altered mental status, abdominal pain women, abdominal pain men, vaginal bleeding, weakness, fever, dyspnea, syncope, headache, dizziness, GI bleed, back pain, seizure, CVA, palpatations, mental health, musculoskeletal)? @ -[not applicable] EKG interpreted by me (3pts min.). @ -Yes and demonstrates sinus bradycardia with a rate of 58. VT interval 106. QRS 93. QTc of 412. J-point elevation in inferior, anterior and lateral leads. No reciprocal changes X-rays interpreted by me (1pt min.). @ -[None done] CT interpreted by me (1pt min.). @ -[None done] U/S interpreted by me (1pt. min.). @ -[None done] What testing was considered but not performed or refused? (CT, X-rays, U/S, labs)? Why? @ -[None] What meds were considered but not given or refused? Why? @ -[None] Did you discuss the management of the patient with other professionals (professionals i.e. , EPI, MINIATURE SET BUILDER, lab, RT, psych nurse, child welfare social worker, icing machine operator, teacher, house officer, therapeutic case manager)? Give summary @ -[No] Was smoking cessation discussed for >3mins.? @ -[No] Was critical care preformed (if so, how long)? @ -[No] Were there social determinants of health that impacted care today? How? (Homelessness, low income, unemployed, alcoholism, drug addiction, transportation, low edu. Level, literacy, decrease access to med. care, snf, rehab)? @ -[No] Was there de-escalation of care discussed even if they declined (Discuss DNR or withdrawal of care, Hospice)? DNR status @ -[No] What co-morbidities impacted this encounter? (DM, HTN, Smoking, COPD, CAD, Cancer, CVA, ARF, Chemo, Hep., AIDS, mental health diagnosis, sleep apnea, morbid obesity)? @ -[None] Was patient admitted / discharged? Hospital course, mention meds given and route, prescriptions, significant lab abnormalities, going to OR and other pertinent info. @ -[hospital course] Undiagnosed new problem with uncertain prognosis? @ -[No] Drug Therapy requiring intensive monitoring for toxicity (Heparin, Nitro, Insulin, Cardizem)? @ -[No] Were any procedures done? @ -[No] Diagnosis/symptom? @ -[default] Acute, or Chronic, or Acute on Chronic? @ -[default] Uncomplicated (without systemic symptoms) or Complicated (systemic symptoms)? @ -[default] Side effects of treatment? @ -[No] Exacerbation, Progression, or Severe Exacerbation? @ -[No] Poses a threat to life or bodily function? How? (Chest pain, [place], [place], pneumonia, PE, COPD, DKA, ARF, appy, cholecystitis, CVA, Diverticulitis, Homicidal, Suicidal, threat to staff... and all critical care pts) @ -[No] Disposition Clinical Impression: Chest pain Disposition: HOME SELF-CARE Condition: Undetermined Instructions (If sedation given, give patient instructions): Chest Pain (ED) Additional Instructions: I recommended that you be admitted to the hospital. I cannot exclude that your pain is not from your heart. I am highly concerned with your history of heart attacks. There is significant risk that if you go home, you could get worse, even . You were okay with this risks. Please see your doctor soon as possible and return should you have any new or worsening symptoms or be agreeable to hospital admission Is patient prescribed a controlled substance at d/c from ED?: No Referrals: Benjy Owen MD [Primary Care Provider] - 1-2 days Sridhar Vazquez MD [STAFF PHYSICIAN] - 1-2 days Time of Disposition: 10:01
[2024-08-13] MEDS: SODIUM CHLORIDE 0.9% 1,000 ML IV STA (07:37)
[2024-08-13] MEDS: HYDROmorphone 1 MG/ML 1 ML SYRINGE IVP STA (07:38)
[2024-08-13] MEDS: ONDANSETRON 4 MG/2 ML VIAL IVP STA (07:38)
[2024-08-13 08:03] LABS: ALT 33 U/L (4-49); AST 30 U/L (17-59); African American GFR (CKD) >90 (>60 ml/min/1.73 sqM); Albumin 3.8 g/dL (3.5-5.0); Alkaline Phosphatase 91 U/L (38-126); Anion Gap 8 mmol/L; Blood Urea Nitrogen 14 mg/dL (9-20); Calcium 9.4 mg/dL (8.4-10.2); Carbon Dioxide 25 mmol/L (22-30); Chloride 102 mmol/L (98-107); Glucose 116 mg/dL (74-99); Lipase 237 U/L (23-300); Magnesium 1.7 mg/dL (1.6-2.3); Non-African American GFR(CKD) >90 (>60 ml/min/1.73 sqM); Potassium 4.4 mmol/L (3.5-5.1); Sodium 135 mmol/L (137-145); Total Bilirubin 0.5 mg/dL (0.2-1.3); Total Protein 6.5 g/dL (6.3-8.2)
--- NOTE | 2024-08-13 08:09 | XR ---
EXAMINATION TYPE: XR chest 2V DATE OF EXAM: 08/13/2024 8:02 AM COMPARISON: Chest x-ray February 28, 2020 CLINICAL INDICATION: Male, 53 years old with history of Chest Pain, TECHNIQUE: Frontal and lateral views of the chest are obtained. FINDINGS: There is no focal air space opacity, pleural effusion, or pneumothorax seen. The cardiac silhouette size is mildly enlarged. The osseous structures are intact. IMPRESSION: Mild cardiomegaly without acute pulmonary process. [facility], , 08/13/2024 8:07 AM
[2024-08-13 08:11] LABS: NT-Pro-B-Type Natriuretic Pept 168 pg/mL
[2024-08-13 08:12] LABS: Basophils % (A) 0 %; Eosinophils # (A) 0.1 k/uL (0-0.7); Eosinophils % (A) 0 %; HGB 14.6 gm/dL (13.0-17.5); Lymphocytes # (A) 5.3 k/uL (1.0-4.8); Lymphocytes % (A) 33 %; MCH 31.1 pg (25.0-35.0); MCHC 33.2 g/dL (31.0-37.0); MCV 93.7 fL (80.0-100.0); Monocytes # (A) 0.6 k/uL (0-1.0); Monocytes % (A) 4 %; Neutrophils % (A) 62 %; Platelet Count 277 k/uL (150-450); RBC 4.69 m/uL (4.30-5.90); RDW 13.1 % (11.5-15.5); WBC 16.2 k/uL (3.8-10.6)
[2024-08-13 08:16] LABS: Prothrombin Time 10.8 sec (10.0-12.5)
[2024-08-13 08:21] LABS: Partial Thromboplastin Time 19.3 sec (22.0-30.0)
[2024-08-13 09:07] LABS: RBC Morphology Normal
[2024-08-13 10:00] VITALS: BP 137/87; PULSE 56; RESP 16
== END 2024-08-13 10:06 | disposition home or self-care (01) ==
LOC: EC 07:00
DX: R07.9 Chest pain, unspecified (principal); I25.10 Atherosclerotic heart disease of native coronary artery without angina pectoris; F17.200 Nicotine dependence, unspecified, uncomplicated
CPT/HCPCS: 36415; 93005; 83880; 80053; 83690; 83735; 84484; 85025; 85610; 85730; 71046; 99285; 96374; 96375; 96361; J2405; J1171